=== PATIENT | male | born 1985 | race Caucasian/White ===

== ENCOUNTER 2019-07-10 16:35 | Inpatient (IN) | payer OTHER ==
[~2019-07-10] VITALS: Ht 167.6 cm; Wt 65.5 kg
[2019-07-10] MEDS ORDERED: RIFAMPIN 300 MG CAPSULE PO ONE (19:45)
[2019-07-10] MEDS ORDERED: ISONIAZID 300 MG TABLET PO ONE (19:45)
[2019-07-10] MEDS ORDERED: ETHAMBUTOL HCL 400 MG TABLET PO ONE (19:45)
[2019-07-10] MEDS ORDERED: PYRAZINAMIDE 500 MG TABLET PO ONE (19:45)
[2019-07-10 20:02] LABS: BASOPHILS % (AUTO) 1.3 % (0.0-2.0); EOSINOPHILS % (AUTO) 7.5 % (1.0-6.0); HEMATOCRIT 38.8 % (41-53); HEMOGLOBIN 12.6 g/dL (13.5-17.5); LYMPHOCYTES # (AUTO) 1.1 K/uL (1.0-4.8); LYMPHOCYTES % (AUTO) 14.4 % (22.0-44.0); MEAN CORPUSCULAR HEMOGLOBIN 26.4 pg (26.0-34.0); MEAN CORPUSCULAR HGB CONC 32.5 G/dL (31.0-37.0); MEAN CORPUSCULAR VOLUME 82 fL (80-100); MONOCYTES # (AUTO) 0.9 K/uL (0.1-1.0); NEUTROPHILS % (AUTO) 64.8 % (40.0-70.0); PLATELET COUNT (AUTO) 372 K/uL (150-450); RED BLOOD CELL COUNT(AUTO) 4.77 MIL/uL (4.50-5.90); RED CELL DISTRIBUTION WIDTH 15.5 % (11.5-14.5)
[2019-07-10] MEDS ORDERED: 0.9% SODIUM CHLORIDE 10 ML SYRINGE IVP PRN (20:15)
[2019-07-10] MEDS ORDERED: ONDANSETRON HCL 4 MG/2 ML VIAL IVP PRN (20:15)
[2019-07-10] MEDS ORDERED: ACETAMINOPHEN 325 MG TABLET PO PRN (20:15)
[2019-07-10 20:47] LABS: ANION GAP 10 mmol/L (8-16); CARBON DIOXIDE 27 mmol/L (22-29); CHLORIDE 101 mmol/L (98-107); CREATININE 0.58 mg/dL (0.60-1.30); GLOMERULAR FILTR. RATE CALC > 60 mL/min (>60); GLUCOSE,RANDOM 71 mg/dL (70-110); POTASSIUM 3.9 mmol/L (3.5-5.1); SODIUM SERUM 138 mmol/L (136-145); UREA NITROGEN, BLOOD 11 mg/dL (7-18)
[2019-07-10 20:51] LABS: ALANINE AMINOTRANSFERASE 29 U/L (12-78); ALBUMIN 3.3 g/dL (3.4-5.0); ALKALINE PHOSPHATASE 67 U/L (46-116); ASPARTATE AMINOTRANSFERASE 20 U/L (15-37); BILIRUBIN,TOTAL 0.4 mg/dL (0.1-1.0); TOTAL PROTEIN, SERUM 8.2 g/dL (6.4-8.2)
[2019-07-10] MEDS ORDERED: CloNIDine HCL 0.1 MG TABLET PO PRN (21:00)
[2019-07-10] MEDS ORDERED: GuaiFENesin/D-METHORPHAN [SUGAR-FREE] 200-20MG/10 ML SYRUP UDCUP PO PRN (21:00)
[2019-07-10] MEDS ORDERED: LOPERAMIDE HCL 2 MG CAPSULE PO PRN (21:00)
[2019-07-10] MEDS ORDERED: MAGNESIUM HYDROXIDE SUSPENSION 30 ML UDCUP PO PRN (21:00)
[2019-07-10] MEDS ORDERED: MAG HYDROX/AL HYDROX/SIMETH ES 30 ML SUSPENSION UDCUP PO PRN (21:00)
[2019-07-10] MEDS ORDERED: NICOTINE 14 MG/24 HOUR PATCH TD PRN (21:00)
[2019-07-10] MEDS ORDERED: ONDANSETRON HCL 4 MG TABLET PO PRN (21:00)
[2019-07-10] MEDS ORDERED: PETROLATUM,WHITE 28 GM JELLY TP PRN (21:00)
[2019-07-10] MEDS ORDERED: ALBUTEROL SULFATE HFA 90 MCG/PUFF 8 GM INHALER IH PRN (21:00)
[2019-07-10 21:20] VITALS: BP 97/60
[2019-07-11 05:56] VITALS: BP 93/57
[2019-07-11 08:06] VITALS: BP 101/57
[2019-07-11 11:44] VITALS: BP 98/58
[2019-07-11 15:22] VITALS: BP 97/56
[2019-07-11 19:36] VITALS: BP 97/58
[2019-07-12] VITALS (7 sets, daily range): BP systolic 96–110; BP diastolic 51–85
[2019-07-12 14:01] LABS: HIV 1-2 SCREEN 4TH GEN W/RFLX Non Reactive (Non Reactive)
[2019-07-12] MEDS: ETHAMBUTOL HCL 400 MG TABLET PO SCH (16:46)
[2019-07-12] MEDS: RIFAMPIN 300 MG CAPSULE PO SCH (16:46)
[2019-07-12] MEDS: PYRAZINAMIDE 500 MG TABLET PO SCH (16:46)
[2019-07-12] MEDS: PYRIDOXINE HCL 50 MG TABLET PO SCH (16:46)
[2019-07-12] MEDS: ISONIAZID 300 MG TABLET PO SCH (16:47)
[2019-07-13 05:12] VITALS: BP 97/55
[2019-07-13 07:38] VITALS: BP 100/61
[2019-07-13] MEDS: ETHAMBUTOL HCL 400 MG TABLET PO SCH (08:23)
[2019-07-13] MEDS: PYRIDOXINE HCL 50 MG TABLET PO SCH (08:23)
[2019-07-13] MEDS: RIFAMPIN 300 MG CAPSULE PO SCH (08:23)
[2019-07-13] MEDS: ISONIAZID 300 MG TABLET PO SCH (08:23)
[2019-07-13] MEDS: PYRAZINAMIDE 500 MG TABLET PO SCH (08:23)
[2019-07-13 11:30] VITALS: BP 103/60
[2019-07-13 15:48] VITALS: BP 110/60
[2019-07-13] MEDS: ACETAMINOPHEN 325 MG TABLET PO PRN (18:18)
[2019-07-13 20:39] VITALS: BP 104/59
[2019-07-14 00:10] VITALS: BP 104/55
[2019-07-14 04:30] VITALS: BP 99/54
[2019-07-14 07:50] VITALS: BP 125/68
[2019-07-14] MEDS: ETHAMBUTOL HCL 400 MG TABLET PO SCH (08:13)
[2019-07-14] MEDS: ISONIAZID 300 MG TABLET PO SCH (08:13)
[2019-07-14] MEDS: PYRAZINAMIDE 500 MG TABLET PO SCH (08:13)
[2019-07-14] MEDS: PYRIDOXINE HCL 50 MG TABLET PO SCH (08:14)
[2019-07-14] MEDS: RIFAMPIN 300 MG CAPSULE PO SCH (08:14)
[2019-07-14] MEDS: ACETAMINOPHEN 325 MG TABLET PO PRN (13:59)
[2019-07-14] MEDS: LORazepam 1 MG TABLET PO PRN (17:59)
[2019-07-14 20:19] VITALS: BP 101/61
[2019-07-15 04:18] VITALS: BP 99/67
[2019-07-15 07:23] VITALS: BP 88/61
[2019-07-15] MEDS: RIFAMPIN 300 MG CAPSULE PO SCH (08:59)
[2019-07-15] MEDS: PYRIDOXINE HCL 50 MG TABLET PO SCH (08:59)
[2019-07-15] MEDS: ISONIAZID 300 MG TABLET PO SCH (08:59)
[2019-07-15] MEDS: ETHAMBUTOL HCL 400 MG TABLET PO SCH (08:59)
[2019-07-15] MEDS: PYRAZINAMIDE 500 MG TABLET PO SCH (08:59)
[2019-07-15] MEDS: LORazepam 1 MG TABLET PO PRN ×2 (10:44→17:56)
[2019-07-15 15:34] VITALS: BP 94/51
[2019-07-15 20:20] VITALS: BP 111/52
[2019-07-15 23:31] VITALS: BP 103/56
[2019-07-16 05:00] VITALS: BP 105/64
[2019-07-16] MEDS: ETHAMBUTOL HCL 400 MG TABLET PO SCH (08:32)
[2019-07-16] MEDS: PYRAZINAMIDE 500 MG TABLET PO SCH (08:32)
[2019-07-16] MEDS: PYRIDOXINE HCL 50 MG TABLET PO SCH (08:32)
[2019-07-16] MEDS: RIFAMPIN 300 MG CAPSULE PO SCH (08:32)
[2019-07-16] MEDS: ISONIAZID 300 MG TABLET PO SCH (08:33)
[2019-07-16] MEDS: LORazepam 1 MG TABLET PO PRN ×2 (08:33→15:13)
[2019-07-16 15:38] VITALS: BP 111/63
[2019-07-16 17:33] LABS: QUANTIFERON+, Nil Value 0.03 IU/mL; QUANTIFERON+,Mitogen Value 3.97 IU/mL; QUANTIFERON+,TB1 Antigen Value 1.56 IU/mL; QUANTIFERON, TB GOLD PLUS Positive (Negative)
[2019-07-16 19:43] VITALS: BP 109/58
[2019-07-16 23:45] VITALS: BP 101/68
[2019-07-17] MEDS: LORazepam 1 MG TABLET PO PRN ×3 (00:54→19:26)
[2019-07-17 04:00] VITALS: BP 108/64
[2019-07-17 08:13] VITALS: BP 90/55
[2019-07-17] MEDS: ETHAMBUTOL HCL 400 MG TABLET PO SCH (09:14)
[2019-07-17] MEDS: ISONIAZID 300 MG TABLET PO SCH (09:14)
[2019-07-17] MEDS: RIFAMPIN 300 MG CAPSULE PO SCH (09:14)
[2019-07-17] MEDS: PYRIDOXINE HCL 50 MG TABLET PO SCH (09:15)
[2019-07-17] MEDS: SERTRALINE HCL 50 MG TABLET PO SCH (09:15)
[2019-07-17] MEDS: PYRAZINAMIDE 500 MG TABLET PO SCH (09:15)
[2019-07-17 11:36] VITALS: BP 102/69
[2019-07-17 15:30] VITALS: BP 105/58
[2019-07-17 20:09] VITALS: BP 101/56
[2019-07-17 23:36] VITALS: BP 98/57
[2019-07-18 04:25] VITALS: BP 113/53
[2019-07-18 07:23] VITALS: BP 94/59
[2019-07-18] MEDS: RIFAMPIN 300 MG CAPSULE PO SCH (08:55)
[2019-07-18] MEDS: PYRIDOXINE HCL 50 MG TABLET PO SCH (08:56)
[2019-07-18] MEDS: PYRAZINAMIDE 500 MG TABLET PO SCH (08:56)
[2019-07-18] MEDS: ETHAMBUTOL HCL 400 MG TABLET PO SCH (08:56)
[2019-07-18] MEDS: SERTRALINE HCL 50 MG TABLET PO SCH (08:56)
[2019-07-18] MEDS: ISONIAZID 300 MG TABLET PO SCH (08:56)
[2019-07-18] MEDS: LORazepam 1 MG TABLET PO PRN ×2 (08:56→15:55)
[2019-07-18 11:25] VITALS: BP 97/51
[2019-07-18 15:23] VITALS: BP 95/58
[2019-07-18 20:00] VITALS: BP 110/62
[2019-07-18 23:41] VITALS: BP 117/87
[2019-07-19] MEDS: LORazepam 1 MG TABLET PO PRN ×4 (00:03→21:42)
[2019-07-19 04:00] VITALS: BP 106/63
[2019-07-19] MEDS: RIFAMPIN 300 MG CAPSULE PO SCH (07:17)
[2019-07-19] MEDS: ISONIAZID 300 MG TABLET PO SCH (07:17)
[2019-07-19] MEDS: PYRAZINAMIDE 500 MG TABLET PO SCH (07:18)
[2019-07-19] MEDS: PYRIDOXINE HCL 50 MG TABLET PO SCH (07:18)
[2019-07-19] MEDS: ETHAMBUTOL HCL 400 MG TABLET PO SCH (07:18)
[2019-07-19 07:24] LABS: EOSINOPHILS % (AUTO) 8.9 % (1.0-6.0); HEMOGLOBIN 13.2 g/dL (13.5-17.5); LYMPHOCYTES % (AUTO) 17.1 % (22.0-44.0); MEAN CORPUSCULAR HEMOGLOBIN 27.2 pg (26.0-34.0); MEAN CORPUSCULAR HGB CONC 32.9 G/dL (31.0-37.0); MEAN CORPUSCULAR VOLUME 83 fL (80-100); MONOCYTES % (AUTO) 7.7 % (2.0-9.0); PLATELET COUNT (AUTO) 314 K/uL (150-450); RED BLOOD CELL COUNT(AUTO) 4.85 MIL/uL (4.50-5.90); RED CELL DISTRIBUTION WIDTH 15.6 % (11.5-14.5)
[2019-07-19 07:25] LABS: BASOPHILS % (AUTO) 2.3 % (0.0-2.0); LYMPHOCYTES # (AUTO) 1.1 K/uL (1.0-4.8); MONOCYTES # (AUTO) 0.5 K/uL (0.1-1.0); NEUTROPHILS # (AUTO) 4.2 K/uL (1.8-7.7)
[2019-07-19 07:55] LABS: ALANINE AMINOTRANSFERASE 28 U/L (12-78); ALBUMIN 3.4 g/dL (3.4-5.0); ALKALINE PHOSPHATASE 58 U/L (46-116); ANION GAP 5 mmol/L (8-16); ASPARTATE AMINOTRANSFERASE 18 U/L (15-37); BILIRUBIN,TOTAL 0.2 mg/dL (0.1-1.0); CALCIUM, TOTAL 9.1 mg/dL (8.8-10.5); CARBON DIOXIDE 32 mmol/L (22-29); CHLORIDE 99 mmol/L (98-107); CREATININE 0.74 mg/dL (0.60-1.30); GLOMERULAR FILTR. RATE CALC > 60 mL/min (>60); GLUCOSE,RANDOM 87 mg/dL (70-110); POTASSIUM 4.1 mmol/L (3.5-5.1); SODIUM SERUM 136 mmol/L (136-145); UREA NITROGEN, BLOOD 12 mg/dL (7-18)
[2019-07-19 08:00] VITALS: BP 109/82
[2019-07-19] MEDS: SERTRALINE HCL 50 MG TABLET PO SCH (11:35)
[2019-07-19 15:31] VITALS: BP 114/67
[2019-07-19 21:47] VITALS: BP 108/60
[2019-07-20 06:35] VITALS: BP 131/57
[2019-07-20 07:25] VITALS: BP 96/60
[2019-07-20] MEDS: LORazepam 1 MG TABLET PO PRN ×3 (07:48→20:33)
[2019-07-20] MEDS: SERTRALINE HCL 50 MG TABLET PO SCH (07:48)
[2019-07-20] MEDS: DOCUSATE SODIUM 100 MG CAPSULE PO PRN (07:48)
[2019-07-20] MEDS: RIFAMPIN 300 MG CAPSULE PO SCH (07:48)
[2019-07-20] MEDS: PYRIDOXINE HCL 50 MG TABLET PO SCH (07:48)
[2019-07-20] MEDS: PYRAZINAMIDE 500 MG TABLET PO SCH (07:48)
[2019-07-20] MEDS: ETHAMBUTOL HCL 400 MG TABLET PO SCH (07:49)
[2019-07-20] MEDS: ISONIAZID 300 MG TABLET PO SCH (07:49)
[2019-07-20 11:14] VITALS: BP 111/71
[2019-07-20 15:09] VITALS: BP 96/68
[2019-07-20 20:08] VITALS: BP 105/57
[2019-07-20] MEDS: TEMAZEPAM 7.5 MG CAPSULE PO PRN (23:54)
[2019-07-21 05:05] VITALS: BP 95/57
[2019-07-21 07:25] VITALS: BP 98/57
[2019-07-21] MEDS: SERTRALINE HCL 50 MG TABLET PO SCH (08:46)
[2019-07-21] MEDS: RIFAMPIN 300 MG CAPSULE PO SCH (08:46)
[2019-07-21] MEDS: ETHAMBUTOL HCL 400 MG TABLET PO SCH (08:47)
[2019-07-21] MEDS: ISONIAZID 300 MG TABLET PO SCH (08:47)
[2019-07-21] MEDS: PYRAZINAMIDE 500 MG TABLET PO SCH (08:47)
[2019-07-21] MEDS: PYRIDOXINE HCL 50 MG TABLET PO SCH (08:47)
[2019-07-21] MEDS: LORazepam 1 MG TABLET PO PRN ×2 (10:31→16:05)
[2019-07-21 16:06] VITALS: BP 101/58
[2019-07-21] MEDS: TEMAZEPAM 7.5 MG CAPSULE PO PRN (19:35)
[2019-07-21 20:54] VITALS: BP 107/56
[2019-07-22] MEDS: LORazepam 1 MG TABLET PO PRN ×2 (01:16→08:14)
[2019-07-22] MEDS: ETHAMBUTOL HCL 400 MG TABLET PO SCH (08:14)
[2019-07-22] MEDS: PYRAZINAMIDE 500 MG TABLET PO SCH (08:14)
[2019-07-22] MEDS: SERTRALINE HCL 50 MG TABLET PO SCH (08:14)
[2019-07-22] MEDS: RIFAMPIN 300 MG CAPSULE PO SCH (08:14)
[2019-07-22] MEDS: PYRIDOXINE HCL 50 MG TABLET PO SCH (08:14)
[2019-07-22] MEDS: ISONIAZID 300 MG TABLET PO SCH (08:14)
[2019-07-22 08:16] VITALS: BP 109/60
[2019-07-22 11:42] VITALS: BP 106/67
[2019-07-22 15:32] VITALS: BP 110/57
[2019-07-22 19:42] VITALS: BP 99/57
[2019-07-22] MEDS: TEMAZEPAM 7.5 MG CAPSULE PO PRN (20:08)
[2019-07-23 05:48] VITALS: BP 103/72
[2019-07-23 07:51] VITALS: BP 109/71
[2019-07-23] MEDS: SERTRALINE HCL 50 MG TABLET PO SCH (08:54)
[2019-07-23] MEDS: PYRIDOXINE HCL 50 MG TABLET PO SCH (08:54)
[2019-07-23] MEDS: RIFAMPIN 300 MG CAPSULE PO SCH (08:54)
[2019-07-23] MEDS: PYRAZINAMIDE 500 MG TABLET PO SCH (08:54)
[2019-07-23] MEDS: LORazepam 1 MG TABLET PO PRN ×2 (08:54→21:34)
[2019-07-23] MEDS: ETHAMBUTOL HCL 400 MG TABLET PO SCH (08:54)
[2019-07-23] MEDS: ISONIAZID 300 MG TABLET PO SCH (08:54)
[2019-07-23 11:54] VITALS: BP 106/57
[2019-07-23 16:17] VITALS: BP 119/49
[2019-07-23 19:37] VITALS: BP 107/56
[2019-07-23] MEDS: DOCUSATE SODIUM 100 MG CAPSULE PO PRN (21:34)
[2019-07-23] MEDS: TEMAZEPAM 7.5 MG CAPSULE PO PRN (21:34)
[2019-07-24] VITALS (7 sets, daily range): BP systolic 89–129; BP diastolic 43–88
[2019-07-24 06:43] LABS: BASOPHILS % (AUTO) 1.8 % (0.0-2.0); EOSINOPHILS % (AUTO) 10.9 % (1.0-6.0); HEMATOCRIT 37.6 % (41-53); HEMOGLOBIN 12.4 g/dL (13.5-17.5); LYMPHOCYTES # (AUTO) 1.1 K/uL (1.0-4.8); MEAN CORPUSCULAR HEMOGLOBIN 27.1 pg (26.0-34.0); MEAN CORPUSCULAR HGB CONC 32.8 G/dL (31.0-37.0); MEAN CORPUSCULAR VOLUME 83 fL (80-100); MONOCYTES # (AUTO) 0.6 K/uL (0.1-1.0); MONOCYTES % (AUTO) 9.6 % (2.0-9.0); NEUTROPHILS # (AUTO) 3.7 K/uL (1.8-7.7); NEUTROPHILS % (AUTO) 59.7 % (40.0-70.0); PLATELET COUNT (AUTO) 292 K/uL (150-450); RED BLOOD CELL COUNT(AUTO) 4.56 MIL/uL (4.50-5.90); RED CELL DISTRIBUTION WIDTH 16.1 % (11.5-14.5)
[2019-07-24 07:13] LABS: ALANINE AMINOTRANSFERASE 28 U/L (12-78); ALBUMIN 3.2 g/dL (3.4-5.0); ALKALINE PHOSPHATASE 50 U/L (46-116); ANION GAP 6 mmol/L (8-16); ASPARTATE AMINOTRANSFERASE 18 U/L (15-37); BILIRUBIN,TOTAL 0.2 mg/dL (0.1-1.0); CALCIUM, TOTAL 8.2 mg/dL (8.8-10.5); CARBON DIOXIDE 29 mmol/L (22-29); CHLORIDE 105 mmol/L (98-107); CREATININE 0.84 mg/dL (0.60-1.30); GLOMERULAR FILTR. RATE CALC > 60 mL/min (>60); GLUCOSE,RANDOM 84 mg/dL (70-110); POTASSIUM 4.3 mmol/L (3.5-5.1); SODIUM SERUM 140 mmol/L (136-145); TOTAL PROTEIN, SERUM 7.5 g/dL (6.4-8.2); UREA NITROGEN, BLOOD 14 mg/dL (7-18)
[2019-07-24] MEDS: DOCUSATE SODIUM 100 MG CAPSULE PO PRN (08:13)
[2019-07-24] MEDS: ETHAMBUTOL HCL 400 MG TABLET PO SCH (08:14)
[2019-07-24] MEDS: PYRAZINAMIDE 500 MG TABLET PO SCH (08:14)
[2019-07-24] MEDS: RIFAMPIN 300 MG CAPSULE PO SCH (08:14)
[2019-07-24] MEDS: ISONIAZID 300 MG TABLET PO SCH (08:14)
[2019-07-24] MEDS: PYRIDOXINE HCL 50 MG TABLET PO SCH (08:14)
[2019-07-24] MEDS: SERTRALINE HCL 50 MG TABLET PO SCH (08:16)
[2019-07-24] MEDS: TEMAZEPAM 7.5 MG CAPSULE PO PRN (20:53)
[2019-07-24] MEDS: LORazepam 1 MG TABLET PO PRN (23:59)
[2019-07-25 04:37] VITALS: BP 103/68
[2019-07-25 07:09] LABS: BASOPHILS % (AUTO) 1.6 % (0.0-2.0); EOSINOPHILS % (AUTO) 10.3 % (1.0-6.0); HEMATOCRIT 40.6 % (41-53); HEMOGLOBIN 13.1 g/dL (13.5-17.5); LYMPHOCYTES # (AUTO) 1.1 K/uL (1.0-4.8); LYMPHOCYTES % (AUTO) 15.8 % (22.0-44.0); MEAN CORPUSCULAR HEMOGLOBIN 26.7 pg (26.0-34.0); MEAN CORPUSCULAR HGB CONC 32.3 G/dL (31.0-37.0); MEAN CORPUSCULAR VOLUME 83 fL (80-100); MONOCYTES # (AUTO) 0.6 K/uL (0.1-1.0); NEUTROPHILS # (AUTO) 4.3 K/uL (1.8-7.7); NEUTROPHILS % (AUTO) 63.3 % (40.0-70.0); PLATELET COUNT (AUTO) 287 K/uL (150-450); RED BLOOD CELL COUNT(AUTO) 4.91 MIL/uL (4.50-5.90); RED CELL DISTRIBUTION WIDTH 15.9 % (11.5-14.5)
[2019-07-25 07:23] VITALS: BP 97/52
[2019-07-25 07:28] LABS: ALANINE AMINOTRANSFERASE 25 U/L (12-78); ALBUMIN 3.4 g/dL (3.4-5.0); ALKALINE PHOSPHATASE 52 U/L (46-116); ANION GAP 2 mmol/L (8-16); ASPARTATE AMINOTRANSFERASE 18 U/L (15-37); BILIRUBIN,TOTAL 0.1 mg/dL (0.1-1.0); CALCIUM, TOTAL 8.9 mg/dL (8.8-10.5); CARBON DIOXIDE 32 mmol/L (22-29); CHLORIDE 102 mmol/L (98-107); CREATININE 0.82 mg/dL (0.60-1.30); GLOMERULAR FILTR. RATE CALC > 60 mL/min (>60); GLUCOSE,RANDOM 89 mg/dL (70-110); POTASSIUM 4.3 mmol/L (3.5-5.1); SODIUM SERUM 136 mmol/L (136-145); TOTAL PROTEIN, SERUM 7.8 g/dL (6.4-8.2); UREA NITROGEN, BLOOD 10 mg/dL (7-18)
[2019-07-25] MEDS: SERTRALINE HCL 50 MG TABLET PO SCH (08:28)
[2019-07-25] MEDS: DOCUSATE SODIUM 100 MG CAPSULE PO PRN (08:28)
[2019-07-25] MEDS: PYRIDOXINE HCL 50 MG TABLET PO SCH (08:29)
[2019-07-25] MEDS: PYRAZINAMIDE 500 MG TABLET PO SCH (08:29)
[2019-07-25] MEDS: ISONIAZID 300 MG TABLET PO SCH (08:30)
[2019-07-25] MEDS: ETHAMBUTOL HCL 400 MG TABLET PO SCH (08:30)
[2019-07-25] MEDS: RIFAMPIN 300 MG CAPSULE PO SCH (08:30)
[2019-07-25 15:56] VITALS: BP 112/55
[2019-07-25 19:35] VITALS: BP 109/60
[2019-07-25] MEDS: LORazepam 1 MG TABLET PO PRN (21:36)
[2019-07-26 05:45] VITALS: BP 100/59
[2019-07-26 06:52] LABS: BASOPHILS % (AUTO) 1.6 % (0.0-2.0); EOSINOPHILS % (AUTO) 10.4 % (1.0-6.0); HEMATOCRIT 41.1 % (41-53); HEMOGLOBIN 13.2 g/dL (13.5-17.5); LYMPHOCYTES # (AUTO) 1.3 K/uL (1.0-4.8); LYMPHOCYTES % (AUTO) 19.4 % (22.0-44.0); MEAN CORPUSCULAR HEMOGLOBIN 26.3 pg (26.0-34.0); MEAN CORPUSCULAR VOLUME 82 fL (80-100); MONOCYTES # (AUTO) 0.7 K/uL (0.1-1.0); MONOCYTES % (AUTO) 10.7 % (2.0-9.0); NEUTROPHILS # (AUTO) 3.9 K/uL (1.8-7.7); NEUTROPHILS % (AUTO) 57.9 % (40.0-70.0); PLATELET COUNT (AUTO) 276 K/uL (150-450); RED CELL DISTRIBUTION WIDTH 16.2 % (11.5-14.5)
[2019-07-26 07:12] LABS: ALANINE AMINOTRANSFERASE 28 U/L (12-78); ALBUMIN 3.4 g/dL (3.4-5.0); ALKALINE PHOSPHATASE 52 U/L (46-116); ANION GAP 4 mmol/L (8-16); ASPARTATE AMINOTRANSFERASE 19 U/L (15-37); BILIRUBIN,TOTAL 0.2 mg/dL (0.1-1.0); CALCIUM, TOTAL 8.9 mg/dL (8.8-10.5); CARBON DIOXIDE 30 mmol/L (22-29); CHLORIDE 102 mmol/L (98-107); GLOMERULAR FILTR. RATE CALC > 60 mL/min (>60); GLUCOSE,RANDOM 86 mg/dL (70-110); POTASSIUM 4.4 mmol/L (3.5-5.1); SODIUM SERUM 136 mmol/L (136-145); TOTAL PROTEIN, SERUM 7.8 g/dL (6.4-8.2); UREA NITROGEN, BLOOD 13 mg/dL (7-18)
[2019-07-26] MEDS: PYRAZINAMIDE 500 MG TABLET PO SCH (08:40)
[2019-07-26] MEDS: PYRIDOXINE HCL 50 MG TABLET PO SCH (08:40)
[2019-07-26] MEDS: DOCUSATE SODIUM 100 MG CAPSULE PO PRN (08:40)
[2019-07-26] MEDS: RIFAMPIN 300 MG CAPSULE PO SCH (08:41)
[2019-07-26] MEDS: ETHAMBUTOL HCL 400 MG TABLET PO SCH (08:41)
[2019-07-26] MEDS: ISONIAZID 300 MG TABLET PO SCH (08:41)
[2019-07-26] MEDS: SERTRALINE HCL 50 MG TABLET PO SCH (08:44)
[2019-07-26 08:49] VITALS: BP 132/61
[2019-07-26 11:28] VITALS: BP 101/65
[2019-07-26 16:30] VITALS: BP 99/64
[2019-07-26 20:24] VITALS: BP 100/71
[2019-07-26] MEDS: LORazepam 1 MG TABLET PO PRN (21:03)
[2019-07-27 04:00] VITALS: BP 109/77
[2019-07-27 07:45] VITALS: BP 107/74
[2019-07-27] MEDS: RIFAMPIN 300 MG CAPSULE PO SCH (09:07)
[2019-07-27] MEDS: PYRAZINAMIDE 500 MG TABLET PO SCH (09:07)
[2019-07-27] MEDS: PYRIDOXINE HCL 50 MG TABLET PO SCH (09:07)
[2019-07-27] MEDS: ETHAMBUTOL HCL 400 MG TABLET PO SCH (09:07)
[2019-07-27] MEDS: SERTRALINE HCL 50 MG TABLET PO SCH (09:08)
[2019-07-27] MEDS: ISONIAZID 300 MG TABLET PO SCH (09:08)
[2019-07-27] MEDS: DOCUSATE SODIUM 100 MG CAPSULE PO PRN (09:08)
[2019-07-27 11:30] VITALS: BP 102/62
[2019-07-27 15:00] VITALS: BP 104/58
[2019-07-27 15:09] LABS: BASOPHILS % (AUTO) 1.5 % (0.0-2.0); EOSINOPHILS % (AUTO) 8.7 % (1.0-6.0); HEMATOCRIT 42.7 % (41-53); LYMPHOCYTES # (AUTO) 1.3 K/uL (1.0-4.8); LYMPHOCYTES % (AUTO) 17.2 % (22.0-44.0); MEAN CORPUSCULAR HEMOGLOBIN 27.3 pg (26.0-34.0); MEAN CORPUSCULAR HGB CONC 32.9 G/dL (31.0-37.0); MEAN CORPUSCULAR VOLUME 83 fL (80-100); MONOCYTES # (AUTO) 0.8 K/uL (0.1-1.0); MONOCYTES % (AUTO) 10.2 % (2.0-9.0); NEUTROPHILS # (AUTO) 4.7 K/uL (1.8-7.7); NEUTROPHILS % (AUTO) 62.4 % (40.0-70.0); PLATELET COUNT (AUTO) 294 K/uL (150-450); RED BLOOD CELL COUNT(AUTO) 5.15 MIL/uL (4.50-5.90); RED CELL DISTRIBUTION WIDTH 16.2 % (11.5-14.5)
[2019-07-27 15:32] LABS: ALANINE AMINOTRANSFERASE 31 U/L (12-78); ALBUMIN 3.6 g/dL (3.4-5.0); ALKALINE PHOSPHATASE 59 U/L (46-116); ANION GAP 3 mmol/L (8-16); ASPARTATE AMINOTRANSFERASE 21 U/L (15-37); BILIRUBIN,TOTAL 0.3 mg/dL (0.1-1.0); CALCIUM, TOTAL 8.5 mg/dL (8.8-10.5); CARBON DIOXIDE 31 mmol/L (22-29); CHLORIDE 104 mmol/L (98-107); GLOMERULAR FILTR. RATE CALC > 60 mL/min (>60); GLUCOSE,RANDOM 87 mg/dL (70-110); POTASSIUM 4.7 mmol/L (3.5-5.1); SODIUM SERUM 138 mmol/L (136-145); TOTAL PROTEIN, SERUM 8.3 g/dL (6.4-8.2); UREA NITROGEN, BLOOD 14 mg/dL (7-18)
[2019-07-27] MEDS: LORazepam 1 MG TABLET PO PRN (15:43)
[2019-07-27 20:14] VITALS: BP 106/64
[2019-07-28 04:50] VITALS: BP 102/73
[2019-07-28 05:42] LABS: BASOPHILS % (AUTO) 1.2 % (0.0-2.0); EOSINOPHILS % (AUTO) 9.4 % (1.0-6.0); HEMATOCRIT 43.4 % (41-53); LYMPHOCYTES # (AUTO) 1.2 K/uL (1.0-4.8); LYMPHOCYTES % (AUTO) 17.3 % (22.0-44.0); MEAN CORPUSCULAR HEMOGLOBIN 26.8 pg (26.0-34.0); MEAN CORPUSCULAR HGB CONC 32.2 G/dL (31.0-37.0); MEAN CORPUSCULAR VOLUME 83 fL (80-100); MONOCYTES # (AUTO) 0.6 K/uL (0.1-1.0); MONOCYTES % (AUTO) 8.6 % (2.0-9.0); NEUTROPHILS # (AUTO) 4.4 K/uL (1.8-7.7); NEUTROPHILS % (AUTO) 63.5 % (40.0-70.0); PLATELET COUNT (AUTO) 291 K/uL (150-450); RED BLOOD CELL COUNT(AUTO) 5.21 MIL/uL (4.50-5.90); RED CELL DISTRIBUTION WIDTH 16.3 % (11.5-14.5)
[2019-07-28 05:58] LABS: ALANINE AMINOTRANSFERASE 29 U/L (12-78); ALBUMIN 3.6 g/dL (3.4-5.0); ALKALINE PHOSPHATASE 54 U/L (46-116); ANION GAP 3 mmol/L (8-16); ASPARTATE AMINOTRANSFERASE 17 U/L (15-37); BILIRUBIN,TOTAL 0.2 mg/dL (0.1-1.0); CARBON DIOXIDE 31 mmol/L (22-29); CHLORIDE 102 mmol/L (98-107); CREATININE 0.94 mg/dL (0.60-1.30); GLOMERULAR FILTR. RATE CALC > 60 mL/min (>60); GLUCOSE,RANDOM 87 mg/dL (70-110); POTASSIUM 4.3 mmol/L (3.5-5.1); SODIUM SERUM 136 mmol/L (136-145); TOTAL PROTEIN, SERUM 8.3 g/dL (6.4-8.2); UREA NITROGEN, BLOOD 12 mg/dL (7-18)
[2019-07-28 07:48] VITALS: BP 101/69
[2019-07-28] MEDS: PYRAZINAMIDE 500 MG TABLET PO SCH (11:14)
[2019-07-28] MEDS: RIFAMPIN 300 MG CAPSULE PO SCH (11:15)
[2019-07-28] MEDS: SERTRALINE HCL 50 MG TABLET PO SCH (11:15)
[2019-07-28] MEDS: ETHAMBUTOL HCL 400 MG TABLET PO SCH (11:15)
[2019-07-28] MEDS: ISONIAZID 300 MG TABLET PO SCH (11:15)
[2019-07-28] MEDS: PYRIDOXINE HCL 50 MG TABLET PO SCH (11:15)
[2019-07-28] MEDS: LORazepam 1 MG TABLET PO PRN (13:35)
[2019-07-28 15:25] VITALS: BP 104/62
[2019-07-28 19:57] VITALS: BP 110/67
[2019-07-28] MEDS: TEMAZEPAM 7.5 MG CAPSULE PO PRN (21:01)
[2019-07-28 23:47] VITALS: BP 99/53
[2019-07-29] MEDS: LORazepam 1 MG TABLET PO PRN (02:48)
[2019-07-29 04:00] VITALS: BP 114/61
[2019-07-29 06:29] LABS: EOSINOPHILS % (AUTO) 12.6 % (1.0-6.0); HEMATOCRIT 40.6 % (41-53); HEMOGLOBIN 13.3 g/dL (13.5-17.5); LYMPHOCYTES # (AUTO) 1.1 K/uL (1.0-4.8); LYMPHOCYTES % (AUTO) 18.3 % (22.0-44.0); MEAN CORPUSCULAR HEMOGLOBIN 26.9 pg (26.0-34.0); MEAN CORPUSCULAR HGB CONC 32.6 G/dL (31.0-37.0); MEAN CORPUSCULAR VOLUME 83 fL (80-100); MONOCYTES # (AUTO) 0.6 K/uL (0.1-1.0); MONOCYTES % (AUTO) 10.5 % (2.0-9.0); NEUTROPHILS # (AUTO) 3.5 K/uL (1.8-7.7); NEUTROPHILS % (AUTO) 56.6 % (40.0-70.0); PLATELET COUNT (AUTO) 272 K/uL (150-450); RED BLOOD CELL COUNT(AUTO) 4.92 MIL/uL (4.50-5.90); RED CELL DISTRIBUTION WIDTH 16.1 % (11.5-14.5)
[2019-07-29 06:52] LABS: ANION GAP 5 mmol/L (8-16); CARBON DIOXIDE 31 mmol/L (22-29); CHLORIDE 103 mmol/L (98-107); CREATININE 0.85 mg/dL (0.60-1.30); GLUCOSE,RANDOM 87 mg/dL (70-110); POTASSIUM 4.4 mmol/L (3.5-5.1); SODIUM SERUM 139 mmol/L (136-145); UREA NITROGEN, BLOOD 11 mg/dL (7-18)
[2019-07-29 06:53] LABS: ALANINE AMINOTRANSFERASE 25 U/L (12-78); ALBUMIN 3.3 g/dL (3.4-5.0); ALKALINE PHOSPHATASE 48 U/L (46-116); ASPARTATE AMINOTRANSFERASE 16 U/L (15-37); BILIRUBIN,TOTAL 0.1 mg/dL (0.1-1.0); CALCIUM, TOTAL 8.5 mg/dL (8.8-10.5); GLOMERULAR FILTR. RATE CALC > 60 mL/min (>60); TOTAL PROTEIN, SERUM 7.6 g/dL (6.4-8.2)
[2019-07-29 07:42] VITALS: BP 95/63
[2019-07-29] MEDS: PYRIDOXINE HCL 50 MG TABLET PO SCH (08:19)
[2019-07-29] MEDS: SERTRALINE HCL 50 MG TABLET PO SCH (08:19)
[2019-07-29] MEDS: ISONIAZID 300 MG TABLET PO SCH (08:19)
[2019-07-29] MEDS: ETHAMBUTOL HCL 400 MG TABLET PO SCH (08:19)
[2019-07-29] MEDS: RIFAMPIN 300 MG CAPSULE PO SCH (08:19)
[2019-07-29] MEDS: PYRAZINAMIDE 500 MG TABLET PO SCH (08:19)
[2019-07-29 15:56] VITALS: BP 122/50
[2019-07-29 19:25] VITALS: BP 99/63
[2019-07-29] MEDS: TEMAZEPAM 7.5 MG CAPSULE PO PRN (20:30)
[2019-07-29 23:25] VITALS: BP 104/67
[2019-07-30 05:32] VITALS: BP 106/68
[2019-07-30 05:51] LABS: BASOPHILS % (AUTO) 1.3 % (0.0-2.0); EOSINOPHILS % (AUTO) 10.6 % (1.0-6.0); HEMATOCRIT 40.4 % (41-53); HEMOGLOBIN 12.9 g/dL (13.5-17.5); LYMPHOCYTES # (AUTO) 1.1 K/uL (1.0-4.8); LYMPHOCYTES % (AUTO) 17.8 % (22.0-44.0); MEAN CORPUSCULAR HEMOGLOBIN 26.5 pg (26.0-34.0); MEAN CORPUSCULAR HGB CONC 32.1 G/dL (31.0-37.0); MEAN CORPUSCULAR VOLUME 83 fL (80-100); MONOCYTES # (AUTO) 0.7 K/uL (0.1-1.0); NEUTROPHILS # (AUTO) 3.7 K/uL (1.8-7.7); NEUTROPHILS % (AUTO) 59.3 % (40.0-70.0); PLATELET COUNT (AUTO) 264 K/uL (150-450); RED BLOOD CELL COUNT(AUTO) 4.88 MIL/uL (4.50-5.90); RED CELL DISTRIBUTION WIDTH 16.2 % (11.5-14.5)
[2019-07-30 06:07] LABS: ALANINE AMINOTRANSFERASE 26 U/L (12-78); ALBUMIN 3.2 g/dL (3.4-5.0); ALKALINE PHOSPHATASE 46 U/L (46-116); ANION GAP 3 mmol/L (8-16); ASPARTATE AMINOTRANSFERASE 16 U/L (15-37); BILIRUBIN,TOTAL 0.1 mg/dL (0.1-1.0); CALCIUM, TOTAL 8.4 mg/dL (8.8-10.5); CARBON DIOXIDE 31 mmol/L (22-29); CHLORIDE 105 mmol/L (98-107); CREATININE 0.86 mg/dL (0.60-1.30); GLOMERULAR FILTR. RATE CALC > 60 mL/min (>60); GLUCOSE,RANDOM 84 mg/dL (70-110); POTASSIUM 4.6 mmol/L (3.5-5.1); SODIUM SERUM 139 mmol/L (136-145); TOTAL PROTEIN, SERUM 7.4 g/dL (6.4-8.2); UREA NITROGEN, BLOOD 10 mg/dL (7-18)
[2019-07-30 07:58] VITALS: BP 93/59
[2019-07-30] MEDS: PYRIDOXINE HCL 50 MG TABLET PO SCH (08:41)
[2019-07-30] MEDS: ISONIAZID 300 MG TABLET PO SCH (08:42)
[2019-07-30] MEDS: RIFAMPIN 300 MG CAPSULE PO SCH (08:42)
[2019-07-30] MEDS: SERTRALINE HCL 50 MG TABLET PO SCH (08:42)
[2019-07-30] MEDS: PYRAZINAMIDE 500 MG TABLET PO SCH (08:42)
[2019-07-30] MEDS: ETHAMBUTOL HCL 400 MG TABLET PO SCH (08:42)
[2019-07-30] MEDS: ACETAMINOPHEN 325 MG TABLET PO PRN (11:36)
[2019-07-30 11:49] VITALS: BP 111/65
[2019-07-30 16:03] VITALS: BP 99/57
[2019-07-30 19:55] VITALS: BP 92/50
[2019-07-30] MEDS: TEMAZEPAM 7.5 MG CAPSULE PO PRN (21:02)
[2019-07-30] MEDS: LORazepam 1 MG TABLET PO PRN (23:54)
[2019-07-31 06:07] VITALS: BP 106/56
[2019-07-31 08:04] LABS: ALANINE AMINOTRANSFERASE 32 U/L (12-78); ALBUMIN 3.5 g/dL (3.4-5.0); ALKALINE PHOSPHATASE 49 U/L (46-116); ANION GAP 5 mmol/L (8-16); ASPARTATE AMINOTRANSFERASE 20 U/L (15-37); BILIRUBIN,TOTAL 0.2 mg/dL (0.1-1.0); CALCIUM, TOTAL 8.7 mg/dL (8.8-10.5); CARBON DIOXIDE 32 mmol/L (22-29); CHLORIDE 106 mmol/L (98-107); CREATININE 0.87 mg/dL (0.60-1.30); GLOMERULAR FILTR. RATE CALC > 60 mL/min (>60); GLUCOSE,RANDOM 83 mg/dL (70-110); POTASSIUM 4.5 mmol/L (3.5-5.1); SODIUM SERUM 143 mmol/L (136-145); UREA NITROGEN, BLOOD 12 mg/dL (7-18)
[2019-07-31] MEDS: PYRAZINAMIDE 500 MG TABLET PO SCH (08:33)
[2019-07-31] MEDS: SERTRALINE HCL 50 MG TABLET PO SCH (08:33)
[2019-07-31] MEDS: RIFAMPIN 300 MG CAPSULE PO SCH (08:33)
[2019-07-31] MEDS: DOCUSATE SODIUM 100 MG CAPSULE PO PRN (08:33)
[2019-07-31] MEDS: PYRIDOXINE HCL 50 MG TABLET PO SCH (08:33)
[2019-07-31] MEDS: ETHAMBUTOL HCL 400 MG TABLET PO SCH (08:33)
[2019-07-31] MEDS: ISONIAZID 300 MG TABLET PO SCH (08:33)
[2019-07-31 08:34] VITALS: BP 101/56
[2019-07-31 11:22] VITALS: BP 107/70
[2019-07-31 15:23] VITALS: BP 95/56
[2019-07-31] MEDS: LORazepam 1 MG TABLET PO PRN (19:35)
[2019-07-31 20:21] VITALS: BP 122/60
[2019-07-31] MEDS: TEMAZEPAM 7.5 MG CAPSULE PO PRN (20:59)
[2019-08-01 05:19] VITALS: BP 104/53
[2019-08-01 07:49] VITALS: BP 103/54
[2019-08-01] MEDS: DOCUSATE SODIUM 100 MG CAPSULE PO PRN (08:21)
[2019-08-01] MEDS: SERTRALINE HCL 50 MG TABLET PO SCH (08:21)
[2019-08-01] MEDS: PYRIDOXINE HCL 50 MG TABLET PO SCH (08:22)
[2019-08-01] MEDS: ISONIAZID 300 MG TABLET PO SCH (08:22)
[2019-08-01] MEDS: ETHAMBUTOL HCL 400 MG TABLET PO SCH (08:22)
[2019-08-01] MEDS: PYRAZINAMIDE 500 MG TABLET PO SCH (08:22)
[2019-08-01] MEDS: RIFAMPIN 300 MG CAPSULE PO SCH (08:22)
[2019-08-01] MEDS: LORazepam 1 MG TABLET PO PRN ×2 (12:51→20:55)
[2019-08-01 15:16] VITALS: BP 118/74
[2019-08-01] MEDS: TEMAZEPAM 7.5 MG CAPSULE PO PRN (20:55)
[2019-08-01 21:22] VITALS: BP 114/64
[2019-08-02] MEDS: ETHAMBUTOL HCL 400 MG TABLET PO SCH (08:24)
[2019-08-02] MEDS: SERTRALINE HCL 50 MG TABLET PO SCH (08:24)
[2019-08-02] MEDS: DOCUSATE SODIUM 100 MG CAPSULE PO PRN (08:24)
[2019-08-02] MEDS: PYRAZINAMIDE 500 MG TABLET PO SCH (08:24)
[2019-08-02] MEDS: ISONIAZID 300 MG TABLET PO SCH (08:25)
[2019-08-02] MEDS: RIFAMPIN 300 MG CAPSULE PO SCH (08:25)
[2019-08-02] MEDS: PYRIDOXINE HCL 50 MG TABLET PO SCH (08:25)
[2019-08-02 08:33] VITALS: BP 94/59
[2019-08-02 18:01] VITALS: BP 94/58
[2019-08-02 21:18] VITALS: BP 112/64
[2019-08-03 06:23] LABS: EOSINOPHILS % (AUTO) 10.9 % (1.0-6.0); HEMOGLOBIN 13.5 g/dL (13.5-17.5); LYMPHOCYTES # (AUTO) 1.2 K/uL (1.0-4.8); LYMPHOCYTES % (AUTO) 20.2 % (22.0-44.0); MEAN CORPUSCULAR HEMOGLOBIN 27.1 pg (26.0-34.0); MEAN CORPUSCULAR HGB CONC 32.9 G/dL (31.0-37.0); MEAN CORPUSCULAR VOLUME 82 fL (80-100); MONOCYTES # (AUTO) 0.6 K/uL (0.1-1.0); MONOCYTES % (AUTO) 10.4 % (2.0-9.0); NEUTROPHILS # (AUTO) 3.2 K/uL (1.8-7.7); NEUTROPHILS % (AUTO) 55.5 % (40.0-70.0); PLATELET COUNT (AUTO) 236 K/uL (150-450); RED BLOOD CELL COUNT(AUTO) 4.98 MIL/uL (4.50-5.90); RED CELL DISTRIBUTION WIDTH 16.3 % (11.5-14.5)
[2019-08-03 06:28] LABS: ANION GAP 5 mmol/L (8-16); CALCIUM, TOTAL 8.7 mg/dL (8.8-10.5); CARBON DIOXIDE 30 mmol/L (22-29); CHLORIDE 101 mmol/L (98-107); CREATININE 0.98 mg/dL (0.60-1.30); GLOMERULAR FILTR. RATE CALC > 60 mL/min (>60); GLUCOSE,RANDOM 89 mg/dL (70-110); SODIUM SERUM 136 mmol/L (136-145); UREA NITROGEN, BLOOD 11 mg/dL (7-18)
[2019-08-03] MEDS: RIFAMPIN 300 MG CAPSULE PO SCH (07:55)
[2019-08-03] MEDS: ETHAMBUTOL HCL 400 MG TABLET PO SCH (07:55)
[2019-08-03] MEDS: SERTRALINE HCL 50 MG TABLET PO SCH (07:56)
[2019-08-03] MEDS: PYRAZINAMIDE 500 MG TABLET PO SCH (07:56)
[2019-08-03] MEDS: PYRIDOXINE HCL 50 MG TABLET PO SCH (07:56)
[2019-08-03] MEDS: ISONIAZID 300 MG TABLET PO SCH (07:57)
[2019-08-03 09:26] VITALS: BP 100/49
[2019-08-03 11:35] VITALS: BP 147/81
[2019-08-03 15:38] VITALS: BP 109/58
[2019-08-03 20:07] VITALS: BP 110/73
[2019-08-03] MEDS: TEMAZEPAM 7.5 MG CAPSULE PO PRN (20:58)
[2019-08-04] MEDS: LORazepam 1 MG TABLET PO PRN ×2 (00:13→21:31)
[2019-08-04 05:06] VITALS: BP 124/58
[2019-08-04 06:42] LABS: BASOPHILS % (AUTO) 1.7 % (0.0-2.0); EOSINOPHILS % (AUTO) 11.4 % (1.0-6.0); HEMOGLOBIN 13.6 g/dL (13.5-17.5); LYMPHOCYTES # (AUTO) 1.2 K/uL (1.0-4.8); LYMPHOCYTES % (AUTO) 20.3 % (22.0-44.0); MEAN CORPUSCULAR HEMOGLOBIN 26.9 pg (26.0-34.0); MEAN CORPUSCULAR HGB CONC 32.4 G/dL (31.0-37.0); MEAN CORPUSCULAR VOLUME 83 fL (80-100); MONOCYTES # (AUTO) 0.6 K/uL (0.1-1.0); NEUTROPHILS # (AUTO) 3.4 K/uL (1.8-7.7); NEUTROPHILS % (AUTO) 56.6 % (40.0-70.0); PLATELET COUNT (AUTO) 236 K/uL (150-450); RED BLOOD CELL COUNT(AUTO) 5.05 MIL/uL (4.50-5.90); RED CELL DISTRIBUTION WIDTH 16.3 % (11.5-14.5)
[2019-08-04 06:54] LABS: ANION GAP 3 mmol/L (8-16); CALCIUM, TOTAL 8.8 mg/dL (8.8-10.5); CARBON DIOXIDE 32 mmol/L (22-29); CHLORIDE 101 mmol/L (98-107); CREATININE 0.98 mg/dL (0.60-1.30); GLOMERULAR FILTR. RATE CALC > 60 mL/min (>60); GLUCOSE,RANDOM 87 mg/dL (70-110); POTASSIUM 4.6 mmol/L (3.5-5.1); SODIUM SERUM 136 mmol/L (136-145); UREA NITROGEN, BLOOD 11 mg/dL (7-18)
[2019-08-04 08:07] VITALS: BP 103/60
[2019-08-04] MEDS: RIFAMPIN 300 MG CAPSULE PO SCH (09:19)
[2019-08-04] MEDS: ETHAMBUTOL HCL 400 MG TABLET PO SCH (09:19)
[2019-08-04] MEDS: SERTRALINE HCL 50 MG TABLET PO SCH (09:19)
[2019-08-04] MEDS: PYRIDOXINE HCL 50 MG TABLET PO SCH (09:19)
[2019-08-04] MEDS: PYRAZINAMIDE 500 MG TABLET PO SCH (09:19)
[2019-08-04] MEDS: ISONIAZID 300 MG TABLET PO SCH (09:19)
[2019-08-04 15:32] VITALS: BP 108/58
[2019-08-04] MEDS: TEMAZEPAM 7.5 MG CAPSULE PO PRN (21:31)
[2019-08-04 21:36] VITALS: BP 120/57
[2019-08-05 04:58] VITALS: BP 123/60
[2019-08-05 07:07] VITALS: BP 101/58
[2019-08-05] MEDS: RIFAMPIN 300 MG CAPSULE PO SCH (08:34)
[2019-08-05] MEDS: PYRAZINAMIDE 500 MG TABLET PO SCH (08:34)
[2019-08-05] MEDS: ETHAMBUTOL HCL 400 MG TABLET PO SCH (08:34)
[2019-08-05] MEDS: PYRIDOXINE HCL 50 MG TABLET PO SCH (08:34)
[2019-08-05] MEDS: ISONIAZID 300 MG TABLET PO SCH (08:34)
[2019-08-05] MEDS: SERTRALINE HCL 50 MG TABLET PO SCH (08:34)
[2019-08-05 11:19] VITALS: BP 90/41
[2019-08-05 15:42] VITALS: BP 102/66
[2019-08-05 20:19] VITALS: BP 108/59
[2019-08-05] MEDS: TEMAZEPAM 7.5 MG CAPSULE PO PRN (21:12)
[2019-08-05] MEDS: LORazepam 1 MG TABLET PO PRN (21:12)
[2019-08-06 00:08] VITALS: BP 97/68
[2019-08-06 05:43] VITALS: BP 116/57
[2019-08-06 08:16] VITALS: BP 107/65
[2019-08-06] MEDS: ETHAMBUTOL HCL 400 MG TABLET PO SCH (10:37)
[2019-08-06] MEDS: SERTRALINE HCL 50 MG TABLET PO SCH (10:37)
[2019-08-06] MEDS: PYRAZINAMIDE 500 MG TABLET PO SCH (10:37)
[2019-08-06] MEDS: RIFAMPIN 300 MG CAPSULE PO SCH (10:37)
[2019-08-06] MEDS: PYRIDOXINE HCL 50 MG TABLET PO SCH (10:37)
[2019-08-06] MEDS: ISONIAZID 300 MG TABLET PO SCH (10:37)
[2019-08-06 11:27] VITALS: BP 102/53
[2019-08-06 17:45] VITALS: BP 100/62
[2019-08-06] MEDS: LORazepam 1 MG TABLET PO PRN (21:07)
[2019-08-06] MEDS: TEMAZEPAM 7.5 MG CAPSULE PO PRN (21:07)
[2019-08-06 21:13] VITALS: BP 98/58
[2019-08-07 05:29] VITALS: BP 112/63
[2019-08-07 08:46] LABS: ALANINE AMINOTRANSFERASE 34 U/L (12-78); ALBUMIN 3.4 g/dL (3.4-5.0); ALKALINE PHOSPHATASE 48 U/L (46-116); ANION GAP 1 mmol/L (8-16); ASPARTATE AMINOTRANSFERASE 23 U/L (15-37); CALCIUM, TOTAL 8.9 mg/dL (8.8-10.5); CARBON DIOXIDE 33 mmol/L (22-29); CHLORIDE 101 mmol/L (98-107); CREATININE 0.94 mg/dL (0.60-1.30); GLOMERULAR FILTR. RATE CALC > 60 mL/min (>60); GLUCOSE,RANDOM 84 mg/dL (70-110); POTASSIUM 4.6 mmol/L (3.5-5.1); SODIUM SERUM 135 mmol/L (136-145); TOTAL PROTEIN, SERUM 7.7 g/dL (6.4-8.2); UREA NITROGEN, BLOOD 12 mg/dL (7-18)
[2019-08-07 09:08] LABS: BILIRUBIN,TOTAL 0.1 mg/dL (0.1-1.0)
[2019-08-07] MEDS: ETHAMBUTOL HCL 400 MG TABLET PO SCH (09:40)
[2019-08-07] MEDS: RIFAMPIN 300 MG CAPSULE PO SCH (09:41)
[2019-08-07] MEDS: PYRIDOXINE HCL 50 MG TABLET PO SCH (09:41)
[2019-08-07] MEDS: SERTRALINE HCL 50 MG TABLET PO SCH (09:41)
[2019-08-07] MEDS: PYRAZINAMIDE 500 MG TABLET PO SCH (09:41)
[2019-08-07] MEDS: ISONIAZID 300 MG TABLET PO SCH (09:41)
[2019-08-07] MEDS: DOCUSATE SODIUM 100 MG CAPSULE PO PRN (09:41)
[2019-08-07] MEDS: LORazepam 1 MG TABLET PO PRN (14:11)
[2019-08-07 20:00] VITALS: BP 99/56
[2019-08-07] MEDS: TEMAZEPAM 7.5 MG CAPSULE PO PRN (20:40)
[2019-08-08] MEDS: LORazepam 1 MG TABLET PO PRN ×3 (02:50→21:16)
[2019-08-08 02:56] VITALS: BP 101/59
[2019-08-08 07:19] VITALS: BP 92/53
[2019-08-08] MEDS: ETHAMBUTOL HCL 400 MG TABLET PO SCH (07:33)
[2019-08-08] MEDS: PYRIDOXINE HCL 50 MG TABLET PO SCH (07:33)
[2019-08-08] MEDS: ISONIAZID 300 MG TABLET PO SCH (07:33)
[2019-08-08] MEDS: SERTRALINE HCL 50 MG TABLET PO SCH (07:33)
[2019-08-08] MEDS: RIFAMPIN 300 MG CAPSULE PO SCH (07:33)
[2019-08-08] MEDS: PYRAZINAMIDE 500 MG TABLET PO SCH (07:33)
[2019-08-08 11:22] VITALS: BP 112/73
[2019-08-08 15:50] VITALS: BP 99/66
[2019-08-08 20:45] VITALS: BP 109/53
[2019-08-08] MEDS: TEMAZEPAM 7.5 MG CAPSULE PO PRN (21:16)
[2019-08-09] MEDS ORDERED: SODIUM CHLORIDE 3% 15 ML NEB SOLUTION NEB ONE ×2 (03:29→21:57)
[2019-08-09 06:07] VITALS: BP 97/52
[2019-08-09 08:00] VITALS: BP 101/60
[2019-08-09] MEDS: RIFAMPIN 300 MG CAPSULE PO SCH (08:04)
[2019-08-09] MEDS: PYRAZINAMIDE 500 MG TABLET PO SCH (08:04)
[2019-08-09] MEDS: SERTRALINE HCL 50 MG TABLET PO SCH (08:04)
[2019-08-09] MEDS: ISONIAZID 300 MG TABLET PO SCH (08:04)
[2019-08-09] MEDS: PYRIDOXINE HCL 50 MG TABLET PO SCH (08:04)
[2019-08-09] MEDS: ETHAMBUTOL HCL 400 MG TABLET PO SCH (08:04)
[2019-08-09] MEDS: LORazepam 1 MG TABLET PO PRN ×2 (08:06→15:55)
[2019-08-09 14:40] VITALS: BP 104/62
[2019-08-09 19:13] VITALS: BP 99/57
[2019-08-09] MEDS: TEMAZEPAM 7.5 MG CAPSULE PO PRN (20:43)
[2019-08-10] MEDS: LORazepam 1 MG TABLET PO PRN ×3 (00:11→16:44)
[2019-08-10 05:38] VITALS: BP 102/61
[2019-08-10] MEDS: PYRIDOXINE HCL 50 MG TABLET PO SCH (07:47)
[2019-08-10] MEDS: ISONIAZID 300 MG TABLET PO SCH (07:47)
[2019-08-10] MEDS: RIFAMPIN 300 MG CAPSULE PO SCH (07:47)
[2019-08-10] MEDS: PYRAZINAMIDE 500 MG TABLET PO SCH (07:47)
[2019-08-10] MEDS: SERTRALINE HCL 50 MG TABLET PO SCH (07:48)
[2019-08-10] MEDS: ETHAMBUTOL HCL 400 MG TABLET PO SCH (07:48)
[2019-08-10 08:18] VITALS: BP 105/63
[2019-08-10 15:00] VITALS: BP 102/56
[2019-08-10 15:31] VITALS: BP 104/56
[2019-08-10 21:00] VITALS: BP 105/74
[2019-08-10] MEDS: TEMAZEPAM 7.5 MG CAPSULE PO PRN (21:19)
[2019-08-11 05:50] VITALS: BP 101/54
[2019-08-11 07:53] VITALS: BP 104/72
[2019-08-11] MEDS: ISONIAZID 300 MG TABLET PO SCH (09:07)
[2019-08-11] MEDS: PYRIDOXINE HCL 50 MG TABLET PO SCH (09:07)
[2019-08-11] MEDS: SERTRALINE HCL 50 MG TABLET PO SCH (09:08)
[2019-08-11] MEDS: LORazepam 1 MG TABLET PO PRN ×2 (09:08→17:04)
[2019-08-11] MEDS: RIFAMPIN 300 MG CAPSULE PO SCH (09:08)
[2019-08-11] MEDS: ETHAMBUTOL HCL 400 MG TABLET PO SCH (09:08)
[2019-08-11] MEDS: PYRAZINAMIDE 500 MG TABLET PO SCH (09:08)
[2019-08-11] MEDS: ACETAMINOPHEN 325 MG TABLET PO PRN ×2 (09:15→21:34)
[2019-08-11 12:11] VITALS: BP 96/76
[2019-08-11 15:45] VITALS: BP 104/84
[2019-08-11 21:30] VITALS: BP 102/66
[2019-08-11] MEDS: DiphenhydrAMINE HCL 25 MG CAPSULE PO PRN (21:34)
[2019-08-12] MEDS: LORazepam 1 MG TABLET PO PRN ×3 (00:32→17:47)
[2019-08-12 00:35] VITALS: BP 96/64
[2019-08-12 08:20] VITALS: BP 96/54
[2019-08-12] MEDS: ISONIAZID 300 MG TABLET PO SCH (09:13)
[2019-08-12] MEDS: DOCUSATE SODIUM 100 MG CAPSULE PO PRN (09:13)
[2019-08-12] MEDS: ETHAMBUTOL HCL 400 MG TABLET PO SCH (09:13)
[2019-08-12] MEDS: SERTRALINE HCL 50 MG TABLET PO SCH (09:13)
[2019-08-12] MEDS: PYRAZINAMIDE 500 MG TABLET PO SCH (09:15)
[2019-08-12] MEDS: RIFAMPIN 300 MG CAPSULE PO SCH (09:16)
[2019-08-12] MEDS: PYRIDOXINE HCL 50 MG TABLET PO SCH (09:16)
[2019-08-12 15:36] VITALS: BP 91/47
[2019-08-12 20:17] VITALS: BP 101/69
[2019-08-12] MEDS: DiphenhydrAMINE HCL 25 MG CAPSULE PO PRN (21:35)
[2019-08-13] MEDS: LORazepam 1 MG TABLET PO PRN ×3 (05:21→22:06)
[2019-08-13 05:25] VITALS: BP 100/62
[2019-08-13 06:08] LABS: BASOPHILS % (AUTO) 2.6 % (0.0-2.0); EOSINOPHILS % (AUTO) 9.7 % (1.0-6.0); HEMATOCRIT 42.7 % (41-53); HEMOGLOBIN 13.8 g/dL (13.5-17.5); LYMPHOCYTES # (AUTO) 1.2 K/uL (1.0-4.8); LYMPHOCYTES % (AUTO) 20.4 % (22.0-44.0); MEAN CORPUSCULAR HEMOGLOBIN 26.9 pg (26.0-34.0); MEAN CORPUSCULAR HGB CONC 32.3 G/dL (31.0-37.0); MEAN CORPUSCULAR VOLUME 83 fL (80-100); MONOCYTES # (AUTO) 0.6 K/uL (0.1-1.0); NEUTROPHILS # (AUTO) 3.5 K/uL (1.8-7.7); NEUTROPHILS % (AUTO) 57.3 % (40.0-70.0); PLATELET COUNT (AUTO) 218 K/uL (150-450); RED BLOOD CELL COUNT(AUTO) 5.14 MIL/uL (4.50-5.90); RED CELL DISTRIBUTION WIDTH 16.8 % (11.5-14.5)
[2019-08-13 06:19] LABS: ANION GAP 6 mmol/L (8-16); CALCIUM, TOTAL 8.6 mg/dL (8.8-10.5); CARBON DIOXIDE 30 mmol/L (22-29); CHLORIDE 107 mmol/L (98-107); CREATININE 0.98 mg/dL (0.60-1.30); GLOMERULAR FILTR. RATE CALC > 60 mL/min (>60); GLUCOSE,RANDOM 86 mg/dL (70-110); POTASSIUM 4.5 mmol/L (3.5-5.1); SODIUM SERUM 143 mmol/L (136-145); UREA NITROGEN, BLOOD 11 mg/dL (7-18)
[2019-08-13 07:58] VITALS: BP 90/62
[2019-08-13] MEDS: PYRIDOXINE HCL 50 MG TABLET PO SCH ×2 (08:24→12:07)
[2019-08-13] MEDS: ETHAMBUTOL HCL 400 MG TABLET PO SCH ×2 (08:24→12:07)
[2019-08-13] MEDS: ISONIAZID 300 MG TABLET PO SCH ×2 (08:24→12:07)
[2019-08-13] MEDS: SERTRALINE HCL 50 MG TABLET PO SCH ×2 (08:24→12:07)
[2019-08-13] MEDS: PYRAZINAMIDE 500 MG TABLET PO SCH ×2 (08:25→12:07)
[2019-08-13] MEDS: RIFAMPIN 300 MG CAPSULE PO SCH ×2 (08:25→12:07)
[2019-08-13 11:55] VITALS: BP 101/65
[2019-08-13] MEDS: ACETAMINOPHEN 325 MG TABLET PO PRN (12:06)
[2019-08-13 15:28] VITALS: BP 103/62
[2019-08-13] MEDS: DiphenhydrAMINE HCL 25 MG CAPSULE PO PRN (19:58)
[2019-08-13 20:03] VITALS: BP 102/65
[2019-08-14 05:42] VITALS: BP 128/52
[2019-08-14 08:00] VITALS: BP 124/56
[2019-08-14] MEDS: PYRAZINAMIDE 500 MG TABLET PO SCH (08:47)
[2019-08-14] MEDS: ETHAMBUTOL HCL 400 MG TABLET PO SCH (08:47)
[2019-08-14] MEDS: ISONIAZID 300 MG TABLET PO SCH (08:47)
[2019-08-14] MEDS: SERTRALINE HCL 50 MG TABLET PO SCH (08:47)
[2019-08-14] MEDS: PYRIDOXINE HCL 50 MG TABLET PO SCH (08:47)
[2019-08-14] MEDS: LORazepam 1 MG TABLET PO PRN ×2 (08:47→20:17)
[2019-08-14] MEDS: RIFAMPIN 300 MG CAPSULE PO SCH (08:47)
[2019-08-14 16:58] VITALS: BP 120/55
[2019-08-14 18:26] VITALS: BP 102/60
[2019-08-14] MEDS: DOCUSATE SODIUM 100 MG CAPSULE PO PRN (20:17)
[2019-08-14 21:01] VITALS: BP 122/59
[2019-08-14] MEDS: DiphenhydrAMINE HCL 25 MG CAPSULE PO PRN (22:35)
[2019-08-14 23:53] VITALS: BP 100/55
[2019-08-15 05:30] VITALS: BP 101/64
[2019-08-15 07:09] LABS: BASOPHILS % (AUTO) 1.5 % (0.0-2.0); EOSINOPHILS % (AUTO) 8.4 % (1.0-6.0); HEMATOCRIT 40.6 % (41-53); HEMOGLOBIN 13.5 g/dL (13.5-17.5); LYMPHOCYTES # (AUTO) 1.1 K/uL (1.0-4.8); LYMPHOCYTES % (AUTO) 18.1 % (22.0-44.0); MEAN CORPUSCULAR HEMOGLOBIN 27.5 pg (26.0-34.0); MEAN CORPUSCULAR HGB CONC 33.3 G/dL (31.0-37.0); MEAN CORPUSCULAR VOLUME 83 fL (80-100); MONOCYTES # (AUTO) 0.6 K/uL (0.1-1.0); MONOCYTES % (AUTO) 9.9 % (2.0-9.0); NEUTROPHILS # (AUTO) 3.9 K/uL (1.8-7.7); NEUTROPHILS % (AUTO) 62.1 % (40.0-70.0); PLATELET COUNT (AUTO) 206 K/uL (150-450); RED CELL DISTRIBUTION WIDTH 16.5 % (11.5-14.5)
[2019-08-15 07:26] LABS: ANION GAP 5 mmol/L (8-16); CALCIUM, TOTAL 8.9 mg/dL (8.8-10.5); CARBON DIOXIDE 31 mmol/L (22-29); CHLORIDE 106 mmol/L (98-107); CREATININE 0.93 mg/dL (0.60-1.30); GLOMERULAR FILTR. RATE CALC > 60 mL/min (>60); GLUCOSE,RANDOM 86 mg/dL (70-110); POTASSIUM 4.4 mmol/L (3.5-5.1); SODIUM SERUM 142 mmol/L (136-145); UREA NITROGEN, BLOOD 11 mg/dL (7-18)
[2019-08-15 07:53] VITALS: BP 107/58
[2019-08-15] MEDS: DOCUSATE SODIUM 100 MG CAPSULE PO PRN (08:24)
[2019-08-15] MEDS: SERTRALINE HCL 50 MG TABLET PO SCH (08:24)
[2019-08-15] MEDS: RIFAMPIN 300 MG CAPSULE PO SCH (08:25)
[2019-08-15] MEDS: ISONIAZID 300 MG TABLET PO SCH (08:25)
[2019-08-15] MEDS: PYRIDOXINE HCL 50 MG TABLET PO SCH (08:25)
[2019-08-15] MEDS: ETHAMBUTOL HCL 400 MG TABLET PO SCH (08:25)
[2019-08-15] MEDS: PYRAZINAMIDE 500 MG TABLET PO SCH (08:25)
[2019-08-15] MEDS: LORazepam 1 MG TABLET PO PRN (11:03)
[2019-08-15 12:05] VITALS: BP 110/70
[2019-08-15 20:12] VITALS: BP 100/73
[2019-08-16] MEDS: LORazepam 1 MG TABLET PO PRN ×3 (03:25→21:52)
[2019-08-16 08:11] LABS: BASOPHILS % (AUTO) 1.3 % (0.0-2.0); EOSINOPHILS % (AUTO) 7.9 % (1.0-6.0); HEMATOCRIT 40.7 % (41-53); HEMOGLOBIN 13.5 g/dL (13.5-17.5); LYMPHOCYTES # (AUTO) 1.1 K/uL (1.0-4.8); LYMPHOCYTES % (AUTO) 15.4 % (22.0-44.0); MEAN CORPUSCULAR HEMOGLOBIN 27.4 pg (26.0-34.0); MEAN CORPUSCULAR HGB CONC 33.2 G/dL (31.0-37.0); MEAN CORPUSCULAR VOLUME 83 fL (80-100); MONOCYTES # (AUTO) 0.7 K/uL (0.1-1.0); MONOCYTES % (AUTO) 9.6 % (2.0-9.0); NEUTROPHILS # (AUTO) 4.6 K/uL (1.8-7.7); NEUTROPHILS % (AUTO) 65.8 % (40.0-70.0); PLATELET COUNT (AUTO) 206 K/uL (150-450); RED BLOOD CELL COUNT(AUTO) 4.93 MIL/uL (4.50-5.90); RED CELL DISTRIBUTION WIDTH 16.9 % (11.5-14.5)
[2019-08-16] MEDS: ISONIAZID 300 MG TABLET PO SCH (08:21)
[2019-08-16] MEDS: PYRIDOXINE HCL 50 MG TABLET PO SCH (08:21)
[2019-08-16] MEDS: ETHAMBUTOL HCL 400 MG TABLET PO SCH (08:21)
[2019-08-16] MEDS: PYRAZINAMIDE 500 MG TABLET PO SCH (08:21)
[2019-08-16] MEDS: SERTRALINE HCL 50 MG TABLET PO SCH (08:21)
[2019-08-16] MEDS: DOCUSATE SODIUM 100 MG CAPSULE PO PRN (08:21)
[2019-08-16] MEDS: RIFAMPIN 300 MG CAPSULE PO SCH (08:21)
[2019-08-16 08:26] LABS: ANION GAP 4 mmol/L (8-16); CALCIUM, TOTAL 8.9 mg/dL (8.8-10.5); CARBON DIOXIDE 32 mmol/L (22-29); CHLORIDE 102 mmol/L (98-107); CREATININE 0.94 mg/dL (0.60-1.30); GLOMERULAR FILTR. RATE CALC > 60 mL/min (>60); GLUCOSE,RANDOM 91 mg/dL (70-110); POTASSIUM 4.3 mmol/L (3.5-5.1); SODIUM SERUM 138 mmol/L (136-145); UREA NITROGEN, BLOOD 11 mg/dL (7-18)
[2019-08-16 13:55] VITALS: BP 110/72
[2019-08-16] MEDS: IBUPROFEN 400 MG TABLET PO PRN (15:17)
[2019-08-16 20:30] VITALS: BP 102/75
[2019-08-17 04:00] VITALS: BP 18/97
[2019-08-17] MEDS: RIFAMPIN 300 MG CAPSULE PO SCH (08:37)
[2019-08-17] MEDS: ISONIAZID 300 MG TABLET PO SCH (08:37)
[2019-08-17] MEDS: ETHAMBUTOL HCL 400 MG TABLET PO SCH (08:37)
[2019-08-17] MEDS: PYRIDOXINE HCL 50 MG TABLET PO SCH (08:38)
[2019-08-17] MEDS: SERTRALINE HCL 50 MG TABLET PO SCH (08:38)
[2019-08-17] MEDS: PYRAZINAMIDE 500 MG TABLET PO SCH (08:38)
[2019-08-17 09:19] VITALS: BP 119/62
[2019-08-17 16:00] VITALS: BP 109/67
[2019-08-17 19:40] VITALS: BP 116/61
[2019-08-17] MEDS: DiphenhydrAMINE HCL 25 MG CAPSULE PO PRN (20:54)
[2019-08-17] MEDS: LORazepam 1 MG TABLET PO PRN (20:54)
[2019-08-17 21:00] VITALS: BP 106/67
[2019-08-18 05:49] VITALS: BP 107/55
[2019-08-18 07:26] LABS: BASOPHILS % (AUTO) 1.4 % (0.0-2.0); HEMATOCRIT 38.5 % (41-53); HEMOGLOBIN 12.6 g/dL (13.5-17.5); LYMPHOCYTES # (AUTO) 1.1 K/uL (1.0-4.8); LYMPHOCYTES % (AUTO) 17.4 % (22.0-44.0); MEAN CORPUSCULAR HEMOGLOBIN 27.1 pg (26.0-34.0); MEAN CORPUSCULAR HGB CONC 32.7 G/dL (31.0-37.0); MEAN CORPUSCULAR VOLUME 83 fL (80-100); MONOCYTES # (AUTO) 0.6 K/uL (0.1-1.0); MONOCYTES % (AUTO) 10.1 % (2.0-9.0); NEUTROPHILS # (AUTO) 3.9 K/uL (1.8-7.7); NEUTROPHILS % (AUTO) 64.1 % (40.0-70.0); PLATELET COUNT (AUTO) 228 K/uL (150-450); RED BLOOD CELL COUNT(AUTO) 4.64 MIL/uL (4.50-5.90)
[2019-08-18 07:39] LABS: ANION GAP 9 mmol/L (8-16); CALCIUM, TOTAL 8.6 mg/dL (8.8-10.5); CARBON DIOXIDE 27 mmol/L (22-29); CHLORIDE 104 mmol/L (98-107); CREATININE 0.91 mg/dL (0.60-1.30); GLOMERULAR FILTR. RATE CALC > 60 mL/min (>60); GLUCOSE,RANDOM 89 mg/dL (70-110); POTASSIUM 3.8 mmol/L (3.5-5.1); SODIUM SERUM 140 mmol/L (136-145); UREA NITROGEN, BLOOD 11 mg/dL (7-18)
[2019-08-18] MEDS: ISONIAZID 300 MG TABLET PO SCH (08:59)
[2019-08-18] MEDS: RIFAMPIN 300 MG CAPSULE PO SCH (08:59)
[2019-08-18] MEDS: ETHAMBUTOL HCL 400 MG TABLET PO SCH (08:59)
[2019-08-18] MEDS: SERTRALINE HCL 50 MG TABLET PO SCH (08:59)
[2019-08-18] MEDS: PYRAZINAMIDE 500 MG TABLET PO SCH (08:59)
[2019-08-18] MEDS: PYRIDOXINE HCL 50 MG TABLET PO SCH (09:02)
[2019-08-18 09:11] VITALS: BP 97/63
[2019-08-18 10:32] LABS: ALANINE AMINOTRANSFERASE 42 U/L (12-78); ALBUMIN 3.7 g/dL (3.4-5.0); ALKALINE PHOSPHATASE 47 U/L (46-116); ASPARTATE AMINOTRANSFERASE 21 U/L (15-37); BILIRUBIN,TOTAL 0.1 mg/dL (0.1-1.0); TOTAL PROTEIN, SERUM 7.6 g/dL (6.4-8.2)
[2019-08-18 16:36] VITALS: BP 114/63
[2019-08-18 19:47] VITALS: BP 117/65
[2019-08-18] MEDS: DiphenhydrAMINE HCL 25 MG CAPSULE PO PRN (20:56)
[2019-08-18] MEDS: LORazepam 1 MG TABLET PO PRN (20:56)
[2019-08-18 21:00] VITALS: BP 112/59
[2019-08-19 05:25] VITALS: BP 104/76
[2019-08-19 08:17] VITALS: BP 107/65
[2019-08-19] MEDS: PYRAZINAMIDE 500 MG TABLET PO SCH (08:40)
[2019-08-19] MEDS: PYRIDOXINE HCL 50 MG TABLET PO SCH (08:41)
[2019-08-19] MEDS: ETHAMBUTOL HCL 400 MG TABLET PO SCH (08:41)
[2019-08-19] MEDS: SERTRALINE HCL 50 MG TABLET PO SCH (08:41)
[2019-08-19] MEDS: LORazepam 1 MG TABLET PO PRN ×2 (08:41→22:12)
[2019-08-19] MEDS: RIFAMPIN 300 MG CAPSULE PO SCH (08:41)
[2019-08-19] MEDS: ISONIAZID 300 MG TABLET PO SCH (08:41)
[2019-08-19 15:46] VITALS: BP 126/51
[2019-08-19 19:29] VITALS: BP 109/64
[2019-08-19] MEDS: DiphenhydrAMINE HCL 25 MG CAPSULE PO PRN (22:12)
[2019-08-20] MEDS: IBUPROFEN 400 MG TABLET PO PRN ×3 (02:28→20:34)
[2019-08-20 04:34] VITALS: BP 102/72
[2019-08-20] MEDS: SERTRALINE HCL 50 MG TABLET PO SCH (08:52)
[2019-08-20] MEDS: PYRAZINAMIDE 500 MG TABLET PO SCH (08:52)
[2019-08-20] MEDS: RIFAMPIN 300 MG CAPSULE PO SCH (08:52)
[2019-08-20] MEDS: ETHAMBUTOL HCL 400 MG TABLET PO SCH (08:53)
[2019-08-20] MEDS: PYRIDOXINE HCL 50 MG TABLET PO SCH (08:53)
[2019-08-20] MEDS: ISONIAZID 300 MG TABLET PO SCH (08:53)
[2019-08-20 09:16] VITALS: BP 102/63
[2019-08-20] MEDS: DiphenhydrAMINE HCL 25 MG CAPSULE PO PRN (20:24)
[2019-08-20 20:47] VITALS: BP 112/88
[2019-08-21] VITALS: BP 128/70
[2019-08-21 06:00] VITALS: BP 112/59
[2019-08-21] MEDS: PYRIDOXINE HCL 50 MG TABLET PO SCH (08:03)
[2019-08-21 08:05] VITALS: BP 123/74
[2019-08-21] MEDS: RIFAMPIN 300 MG CAPSULE PO SCH (08:05)
[2019-08-21] MEDS: PYRAZINAMIDE 500 MG TABLET PO SCH (08:05)
[2019-08-21] MEDS: LORazepam 1 MG TABLET PO PRN (08:06)
[2019-08-21] MEDS: ETHAMBUTOL HCL 400 MG TABLET PO SCH (08:06)
[2019-08-21] MEDS: ISONIAZID 300 MG TABLET PO SCH (08:06)
[2019-08-21] MEDS: SERTRALINE HCL 50 MG TABLET PO SCH (08:06)
[2019-08-21] MEDS: IBUPROFEN 400 MG TABLET PO PRN ×2 (08:06→20:14)
[2019-08-21 15:44] VITALS: BP 133/71
[2019-08-21] MEDS ORDERED: SODIUM CHLORIDE 3% 15 ML NEB SOLUTION NEB ONE (16:55)
[2019-08-21] MEDS ORDERED: SODIUM CL IRRIG SOLN BOTTLE 250 ML IRRIG ONE (17:19)
[2019-08-21 19:45] VITALS: BP 110/69
[2019-08-21] MEDS: DiphenhydrAMINE HCL 25 MG CAPSULE PO PRN (20:15)
[2019-08-22 04:55] VITALS: BP 93/63
[2019-08-22] MEDS: PYRAZINAMIDE 500 MG TABLET PO SCH (09:02)
[2019-08-22] MEDS: ISONIAZID 300 MG TABLET PO SCH (09:02)
[2019-08-22] MEDS: RIFAMPIN 300 MG CAPSULE PO SCH (09:02)
[2019-08-22] MEDS: SERTRALINE HCL 50 MG TABLET PO SCH (09:02)
[2019-08-22] MEDS: ETHAMBUTOL HCL 400 MG TABLET PO SCH (09:02)
[2019-08-22] MEDS: PYRIDOXINE HCL 50 MG TABLET PO SCH (09:03)
[2019-08-22 09:09] VITALS: BP 115/74
[2019-08-22 16:47] VITALS: BP 104/67
[2019-08-22] MEDS: LORazepam 1 MG TABLET PO PRN (20:32)
[2019-08-22 21:04] VITALS: BP 112/73
[2019-08-23 05:47] VITALS: BP 99/57
[2019-08-23 08:10] VITALS: BP 104/57
[2019-08-23] MEDS: RIFAMPIN 300 MG CAPSULE PO SCH (08:33)
[2019-08-23] MEDS: SERTRALINE HCL 50 MG TABLET PO SCH (08:33)
[2019-08-23] MEDS: ISONIAZID 300 MG TABLET PO SCH (08:33)
[2019-08-23] MEDS: PYRAZINAMIDE 500 MG TABLET PO SCH (08:33)
[2019-08-23] MEDS: PYRIDOXINE HCL 50 MG TABLET PO SCH (08:33)
[2019-08-23] MEDS: ETHAMBUTOL HCL 400 MG TABLET PO SCH (08:33)
[2019-08-23 16:20] VITALS: BP 116/60
[2019-08-23 20:18] VITALS: BP 105/60
[2019-08-23] MEDS: DiphenhydrAMINE HCL 25 MG CAPSULE PO PRN (21:31)
[2019-08-23] MEDS: LORazepam 1 MG TABLET PO PRN (21:36)
[2019-08-24 05:48] VITALS: BP 102/56
[2019-08-24 08:00] VITALS: BP 110/75
[2019-08-24] MEDS: ISONIAZID 300 MG TABLET PO SCH (08:37)
[2019-08-24] MEDS: RIFAMPIN 300 MG CAPSULE PO SCH (08:37)
[2019-08-24] MEDS: ETHAMBUTOL HCL 400 MG TABLET PO SCH (08:37)
[2019-08-24] MEDS: SERTRALINE HCL 50 MG TABLET PO SCH (08:37)
[2019-08-24] MEDS: PYRIDOXINE HCL 50 MG TABLET PO SCH (08:37)
[2019-08-24] MEDS: PYRAZINAMIDE 500 MG TABLET PO SCH (08:37)
[2019-08-24 16:00] VITALS: BP 107/73
[2019-08-24 20:53] VITALS: BP 114/51
[2019-08-24] MEDS: DiphenhydrAMINE HCL 25 MG CAPSULE PO PRN (21:12)
[2019-08-24] MEDS: LORazepam 1 MG TABLET PO PRN (21:12)
[2019-08-25 06:10] VITALS: BP 95/72
[2019-08-25 07:40] LABS: BASOPHILS % (AUTO) 1.1 % (0.0-2.0); EOSINOPHILS % (AUTO) 9.5 % (1.0-6.0); HEMATOCRIT 39.7 % (41-53); HEMOGLOBIN 13.1 g/dL (13.5-17.5); LYMPHOCYTES % (AUTO) 15.6 % (22.0-44.0); MEAN CORPUSCULAR HEMOGLOBIN 27.2 pg (26.0-34.0); MEAN CORPUSCULAR HGB CONC 32.9 G/dL (31.0-37.0); MEAN CORPUSCULAR VOLUME 83 fL (80-100); MONOCYTES # (AUTO) 0.7 K/uL (0.1-1.0); MONOCYTES % (AUTO) 10.8 % (2.0-9.0); NEUTROPHILS # (AUTO) 3.9 K/uL (1.8-7.7); PLATELET COUNT (AUTO) 253 K/uL (150-450); RED BLOOD CELL COUNT(AUTO) 4.81 MIL/uL (4.50-5.90); RED CELL DISTRIBUTION WIDTH 17.1 % (11.5-14.5)
[2019-08-25 08:04] LABS: ALANINE AMINOTRANSFERASE 39 U/L (12-78); ALBUMIN 3.6 g/dL (3.4-5.0); ALKALINE PHOSPHATASE 53 U/L (46-116); ANION GAP 3 mmol/L (8-16); ASPARTATE AMINOTRANSFERASE 19 U/L (15-37); BILIRUBIN,TOTAL 0.1 mg/dL (0.1-1.0); CALCIUM, TOTAL 8.8 mg/dL (8.8-10.5); CARBON DIOXIDE 32 mmol/L (22-29); CHLORIDE 103 mmol/L (98-107); CREATININE 0.98 mg/dL (0.60-1.30); GLOMERULAR FILTR. RATE CALC > 60 mL/min (>60); GLUCOSE,RANDOM 90 mg/dL (70-110); SODIUM SERUM 138 mmol/L (136-145); TOTAL PROTEIN, SERUM 7.9 g/dL (6.4-8.2); UREA NITROGEN, BLOOD 11 mg/dL (7-18)
[2019-08-25 08:29] VITALS: BP 108/63
[2019-08-25] MEDS: PYRIDOXINE HCL 50 MG TABLET PO SCH (10:03)
[2019-08-25] MEDS: SERTRALINE HCL 50 MG TABLET PO SCH (10:03)
[2019-08-25] MEDS: PYRAZINAMIDE 500 MG TABLET PO SCH (10:03)
[2019-08-25] MEDS: ETHAMBUTOL HCL 400 MG TABLET PO SCH (10:04)
[2019-08-25] MEDS: RIFAMPIN 300 MG CAPSULE PO SCH (10:04)
[2019-08-25] MEDS: ISONIAZID 300 MG TABLET PO SCH (10:04)
[2019-08-25] MEDS: LORazepam 1 MG TABLET PO PRN ×2 (10:13→20:50)
[2019-08-25 15:52] VITALS: BP 103/68
[2019-08-25 20:31] VITALS: BP 115/74
[2019-08-25] MEDS: DiphenhydrAMINE HCL 25 MG CAPSULE PO PRN (20:50)
[2019-08-26 06:07] VITALS: BP 128/72
[2019-08-26 08:18] VITALS: BP 112/53
[2019-08-26] MEDS: ETHAMBUTOL HCL 400 MG TABLET PO SCH (09:20)
[2019-08-26] MEDS: PYRAZINAMIDE 500 MG TABLET PO SCH (09:21)
[2019-08-26] MEDS: RIFAMPIN 300 MG CAPSULE PO SCH (09:21)
[2019-08-26] MEDS: PYRIDOXINE HCL 50 MG TABLET PO SCH (09:22)
[2019-08-26] MEDS: SERTRALINE HCL 50 MG TABLET PO SCH (09:22)
[2019-08-26] MEDS: ISONIAZID 300 MG TABLET PO SCH (09:22)
[2019-08-26] MEDS: LORazepam 1 MG TABLET PO PRN ×2 (09:26→20:39)
[2019-08-26 15:51] VITALS: BP 105/63
[2019-08-26 19:59] VITALS: BP 111/74
[2019-08-26] MEDS: DiphenhydrAMINE HCL 25 MG CAPSULE PO PRN (20:40)
[2019-08-27 05:01] VITALS: BP 101/68
[2019-08-27 06:41] LABS: BASOPHILS % (AUTO) 1.2 % (0.0-2.0); EOSINOPHILS % (AUTO) 10.2 % (1.0-6.0); HEMATOCRIT 38.4 % (41-53); LYMPHOCYTES # (AUTO) 1.2 K/uL (1.0-4.8); LYMPHOCYTES % (AUTO) 19.6 % (22.0-44.0); MEAN CORPUSCULAR HEMOGLOBIN 28.1 pg (26.0-34.0); MEAN CORPUSCULAR HGB CONC 33.9 G/dL (31.0-37.0); MEAN CORPUSCULAR VOLUME 83 fL (80-100); MONOCYTES # (AUTO) 0.8 K/uL (0.1-1.0); MONOCYTES % (AUTO) 12.8 % (2.0-9.0); NEUTROPHILS # (AUTO) 3.4 K/uL (1.8-7.7); NEUTROPHILS % (AUTO) 56.2 % (40.0-70.0); PLATELET COUNT (AUTO) 257 K/uL (150-450); RED BLOOD CELL COUNT(AUTO) 4.63 MIL/uL (4.50-5.90); RED CELL DISTRIBUTION WIDTH 17.1 % (11.5-14.5)
[2019-08-27 07:08] LABS: ANION GAP 4 mmol/L (8-16); CALCIUM, TOTAL 8.7 mg/dL (8.8-10.5); CARBON DIOXIDE 30 mmol/L (22-29); CHLORIDE 105 mmol/L (98-107); CREATININE 0.95 mg/dL (0.60-1.30); GLOMERULAR FILTR. RATE CALC > 60 mL/min (>60); GLUCOSE,RANDOM 90 mg/dL (70-110); POTASSIUM 4.2 mmol/L (3.5-5.1); SODIUM SERUM 139 mmol/L (136-145); UREA NITROGEN, BLOOD 9 mg/dL (7-18)
[2019-08-27 08:12] VITALS: BP 92/66
[2019-08-27] MEDS: PYRIDOXINE HCL 50 MG TABLET PO SCH (08:45)
[2019-08-27] MEDS: ETHAMBUTOL HCL 400 MG TABLET PO SCH (08:45)
[2019-08-27] MEDS: ISONIAZID 300 MG TABLET PO SCH (08:45)
[2019-08-27] MEDS: RIFAMPIN 300 MG CAPSULE PO SCH (08:45)
[2019-08-27] MEDS: SERTRALINE HCL 50 MG TABLET PO SCH (08:45)
[2019-08-27] MEDS: PYRAZINAMIDE 500 MG TABLET PO SCH (08:45)
[2019-08-27] MEDS: LORazepam 1 MG TABLET PO PRN (14:12)
[2019-08-27 16:02] VITALS: BP 139/73
[2019-08-27 19:54] VITALS: BP 108/68
[2019-08-27] MEDS: DiphenhydrAMINE HCL 25 MG CAPSULE PO PRN (20:27)
[2019-08-28 05:50] VITALS: BP 103/80
[2019-08-28 07:40] LABS: BASOPHILS % (AUTO) 1.8 % (0.0-2.0); EOSINOPHILS % (AUTO) 9.6 % (1.0-6.0); HEMATOCRIT 39.9 % (41-53); HEMOGLOBIN 12.7 g/dL (13.5-17.5); LYMPHOCYTES # (AUTO) 1.3 K/uL (1.0-4.8); LYMPHOCYTES % (AUTO) 18.9 % (22.0-44.0); MEAN CORPUSCULAR HEMOGLOBIN 26.7 pg (26.0-34.0); MEAN CORPUSCULAR HGB CONC 31.9 G/dL (31.0-37.0); MEAN CORPUSCULAR VOLUME 84 fL (80-100); MONOCYTES # (AUTO) 0.7 K/uL (0.1-1.0); MONOCYTES % (AUTO) 10.9 % (2.0-9.0); NEUTROPHILS % (AUTO) 58.8 % (40.0-70.0); PLATELET COUNT (AUTO) 276 K/uL (150-450); RED BLOOD CELL COUNT(AUTO) 4.76 MIL/uL (4.50-5.90); RED CELL DISTRIBUTION WIDTH 17.3 % (11.5-14.5)
[2019-08-28 07:47] VITALS: BP 92/76
[2019-08-28 07:47] LABS: ANION GAP 5 mmol/L (8-16); CALCIUM, TOTAL 8.8 mg/dL (8.8-10.5); CARBON DIOXIDE 30 mmol/L (22-29); CHLORIDE 105 mmol/L (98-107); CREATININE 0.96 mg/dL (0.60-1.30); GLOMERULAR FILTR. RATE CALC > 60 mL/min (>60); GLUCOSE,RANDOM 97 mg/dL (70-110); POTASSIUM 4.3 mmol/L (3.5-5.1); SODIUM SERUM 140 mmol/L (136-145); UREA NITROGEN, BLOOD 8 mg/dL (7-18)
[2019-08-28] MEDS: RIFAMPIN 300 MG CAPSULE PO SCH (09:56)
[2019-08-28] MEDS: PYRAZINAMIDE 500 MG TABLET PO SCH (09:57)
[2019-08-28] MEDS: ISONIAZID 300 MG TABLET PO SCH (09:57)
[2019-08-28] MEDS: PYRIDOXINE HCL 50 MG TABLET PO SCH (09:57)
[2019-08-28] MEDS: ETHAMBUTOL HCL 400 MG TABLET PO SCH (09:57)
[2019-08-28] MEDS: SERTRALINE HCL 50 MG TABLET PO SCH (09:58)
[2019-08-28] MEDS: LORazepam 1 MG TABLET PO PRN ×2 (09:58→20:25)
[2019-08-28 16:19] VITALS: BP 99/71
[2019-08-28 20:00] VITALS: BP 101/53
[2019-08-28] MEDS: DiphenhydrAMINE HCL 25 MG CAPSULE PO PRN (20:25)
[2019-08-29 04:50] VITALS: BP 104/58
[2019-08-29 08:04] VITALS: BP 102/60
[2019-08-29] MEDS: SERTRALINE HCL 50 MG TABLET PO SCH (09:20)
[2019-08-29] MEDS: PYRIDOXINE HCL 50 MG TABLET PO SCH (09:20)
[2019-08-29] MEDS: ISONIAZID 300 MG TABLET PO SCH (09:21)
[2019-08-29] MEDS: ETHAMBUTOL HCL 400 MG TABLET PO SCH (09:21)
[2019-08-29] MEDS: RIFAMPIN 300 MG CAPSULE PO SCH (09:21)
[2019-08-29] MEDS: PYRAZINAMIDE 500 MG TABLET PO SCH (09:21)
[2019-08-29 15:49] VITALS: BP 102/63
[2019-08-29] MEDS: DiphenhydrAMINE HCL 25 MG CAPSULE PO PRN (22:16)
[2019-08-29] MEDS: LORazepam 1 MG TABLET PO PRN (22:16)
[2019-08-30] VITALS: BP 120/65
[2019-08-30 04:30] VITALS: BP 115/59
[2019-08-30 07:36] VITALS: BP 110/58
[2019-08-30] MEDS: RIFAMPIN 300 MG CAPSULE PO SCH (09:27)
[2019-08-30] MEDS: ETHAMBUTOL HCL 400 MG TABLET PO SCH (09:27)
[2019-08-30] MEDS: PYRIDOXINE HCL 50 MG TABLET PO SCH (09:27)
[2019-08-30] MEDS: ISONIAZID 300 MG TABLET PO SCH (09:27)
[2019-08-30] MEDS: SERTRALINE HCL 50 MG TABLET PO SCH (09:27)
[2019-08-30] MEDS: PYRAZINAMIDE 500 MG TABLET PO SCH (09:28)
[2019-08-30 15:31] VITALS: BP 139/61
[2019-08-30 20:30] VITALS: BP 101/57
[2019-08-30] MEDS: DiphenhydrAMINE HCL 25 MG CAPSULE PO PRN (21:03)
[2019-08-30] MEDS: LORazepam 1 MG TABLET PO PRN (21:03)
[2019-08-31 05:35] VITALS: BP 99/54
[2019-08-31 08:17] VITALS: BP 107/61
[2019-08-31] MEDS: ETHAMBUTOL HCL 400 MG TABLET PO SCH (08:52)
[2019-08-31] MEDS: ISONIAZID 300 MG TABLET PO SCH (08:52)
[2019-08-31] MEDS: RIFAMPIN 300 MG CAPSULE PO SCH (08:53)
[2019-08-31] MEDS: PYRIDOXINE HCL 50 MG TABLET PO SCH (08:53)
[2019-08-31] MEDS: SERTRALINE HCL 50 MG TABLET PO SCH (08:53)
[2019-08-31] MEDS: PYRAZINAMIDE 500 MG TABLET PO SCH (08:53)
[2019-08-31 15:48] VITALS: BP 116/62
[2019-08-31 20:45] VITALS: BP 97/53
[2019-08-31] MEDS: LORazepam 1 MG TABLET PO PRN (20:55)
[2019-08-31] MEDS: DiphenhydrAMINE HCL 25 MG CAPSULE PO PRN (20:55)
[2019-09-01 05:27] VITALS: BP 98/61
[2019-09-01 08:21] VITALS: BP 103/60
[2019-09-01] MEDS: PYRAZINAMIDE 500 MG TABLET PO SCH (08:32)
[2019-09-01] MEDS: RIFAMPIN 300 MG CAPSULE PO SCH (08:32)
[2019-09-01] MEDS: ISONIAZID 300 MG TABLET PO SCH (08:32)
[2019-09-01] MEDS: PYRIDOXINE HCL 50 MG TABLET PO SCH (08:32)
[2019-09-01] MEDS: ETHAMBUTOL HCL 400 MG TABLET PO SCH (08:33)
[2019-09-01] MEDS: SERTRALINE HCL 50 MG TABLET PO SCH (08:33)
[2019-09-01 15:54] VITALS: BP 100/55
[2019-09-01] MEDS: LORazepam 1 MG TABLET PO PRN (17:05)
[2019-09-01 20:10] VITALS: BP 102/60
[2019-09-01] MEDS: DiphenhydrAMINE HCL 25 MG CAPSULE PO PRN (20:42)
[2019-09-02 04:15] VITALS: BP 97/53
[2019-09-02] MEDS: ISONIAZID 300 MG TABLET PO SCH (07:51)
[2019-09-02] MEDS: PYRAZINAMIDE 500 MG TABLET PO SCH (07:51)
[2019-09-02] MEDS: RIFAMPIN 300 MG CAPSULE PO SCH (07:51)
[2019-09-02] MEDS: ETHAMBUTOL HCL 400 MG TABLET PO SCH (07:51)
[2019-09-02] MEDS: PYRIDOXINE HCL 50 MG TABLET PO SCH (07:51)
[2019-09-02] MEDS: SERTRALINE HCL 50 MG TABLET PO SCH (07:51)
[2019-09-02 10:30] VITALS: BP 117/70
[2019-09-02] MEDS: LORazepam 1 MG TABLET PO PRN (16:22)
[2019-09-02 16:27] VITALS: BP 110/64
[2019-09-02] MEDS: DiphenhydrAMINE HCL 25 MG CAPSULE PO PRN (21:12)
[2019-09-02 21:16] VITALS: BP 117/59
[2019-09-03 06:05] VITALS: BP 113/63
[2019-09-03] MEDS: LORazepam 1 MG TABLET PO PRN ×2 (06:07→14:34)
[2019-09-03 08:05] VITALS: BP 106/66
[2019-09-03] MEDS: ETHAMBUTOL HCL 400 MG TABLET PO SCH (08:52)
[2019-09-03] MEDS: PYRAZINAMIDE 500 MG TABLET PO SCH (08:55)
[2019-09-03] MEDS: ISONIAZID 300 MG TABLET PO SCH (08:57)
[2019-09-03] MEDS: RIFAMPIN 300 MG CAPSULE PO SCH (08:57)
[2019-09-03] MEDS: SERTRALINE HCL 50 MG TABLET PO SCH (08:58)
[2019-09-03] MEDS: PYRIDOXINE HCL 50 MG TABLET PO SCH (09:00)
[2019-09-03 16:09] VITALS: BP 123/67
[2019-09-03 20:08] VITALS: BP 106/64
[2019-09-04] MEDS: LORazepam 1 MG TABLET PO PRN ×3 (01:37→20:26)
[2019-09-04 05:31] VITALS: BP 100/59
[2019-09-04 07:13] LABS: BASOPHILS % (AUTO) 1.5 % (0.0-2.0); EOSINOPHILS % (AUTO) 10.1 % (1.0-6.0); HEMATOCRIT 38.7 % (41-53); HEMOGLOBIN 13.2 g/dL (13.5-17.5); LYMPHOCYTES # (AUTO) 1.2 K/uL (1.0-4.8); LYMPHOCYTES % (AUTO) 19.9 % (22.0-44.0); MEAN CORPUSCULAR HEMOGLOBIN 28.4 pg (26.0-34.0); MEAN CORPUSCULAR VOLUME 84 fL (80-100); MONOCYTES # (AUTO) 0.6 K/uL (0.1-1.0); MONOCYTES % (AUTO) 10.7 % (2.0-9.0); NEUTROPHILS # (AUTO) 3.4 K/uL (1.8-7.7); NEUTROPHILS % (AUTO) 57.8 % (40.0-70.0); PLATELET COUNT (AUTO) 264 K/uL (150-450); RED BLOOD CELL COUNT(AUTO) 4.63 MIL/uL (4.50-5.90)
[2019-09-04 07:56] VITALS: BP 103/59
[2019-09-04 08:25] LABS: ALANINE AMINOTRANSFERASE 35 U/L (12-78); ALBUMIN 3.5 g/dL (3.4-5.0); ALKALINE PHOSPHATASE 50 U/L (46-116); ANION GAP 6 mmol/L (8-16); ASPARTATE AMINOTRANSFERASE 17 U/L (15-37); BILIRUBIN,TOTAL 0.1 mg/dL (0.1-1.0); CALCIUM, TOTAL 8.6 mg/dL (8.8-10.5); CARBON DIOXIDE 29 mmol/L (22-29); CHLORIDE 105 mmol/L (98-107); CREATININE 0.91 mg/dL (0.60-1.30); GLOMERULAR FILTR. RATE CALC > 60 mL/min (>60); GLUCOSE,RANDOM 90 mg/dL (70-110); POTASSIUM 4.5 mmol/L (3.5-5.1); SODIUM SERUM 140 mmol/L (136-145); TOTAL PROTEIN, SERUM 7.9 g/dL (6.4-8.2); UREA NITROGEN, BLOOD 8 mg/dL (7-18)
[2019-09-04] MEDS: RIFAMPIN 300 MG CAPSULE PO SCH (09:20)
[2019-09-04] MEDS: SERTRALINE HCL 50 MG TABLET PO SCH (09:20)
[2019-09-04] MEDS: PYRIDOXINE HCL 50 MG TABLET PO SCH (09:20)
[2019-09-04] MEDS: ETHAMBUTOL HCL 400 MG TABLET PO SCH (09:20)
[2019-09-04] MEDS: PYRAZINAMIDE 500 MG TABLET PO SCH (09:20)
[2019-09-04] MEDS: ISONIAZID 300 MG TABLET PO SCH (09:20)
[2019-09-04 15:10] VITALS: BP 102/55
[2019-09-04] MEDS: DiphenhydrAMINE HCL 25 MG CAPSULE PO PRN (20:26)
[2019-09-04 20:37] VITALS: BP 104/62
[2019-09-05 04:30] VITALS: BP 101/73
[2019-09-05 08:00] VITALS: BP 110/77
[2019-09-05] MEDS: PYRAZINAMIDE 500 MG TABLET PO SCH (08:35)
[2019-09-05] MEDS: ISONIAZID 300 MG TABLET PO SCH (08:35)
[2019-09-05] MEDS: PYRIDOXINE HCL 50 MG TABLET PO SCH (08:35)
[2019-09-05] MEDS: ETHAMBUTOL HCL 400 MG TABLET PO SCH (08:35)
[2019-09-05] MEDS: RIFAMPIN 300 MG CAPSULE PO SCH (08:35)
[2019-09-05] MEDS: LORazepam 1 MG TABLET PO PRN ×2 (08:35→19:55)
[2019-09-05] MEDS: SERTRALINE HCL 50 MG TABLET PO SCH (08:35)
[2019-09-05 16:00] VITALS: BP 111/72
[2019-09-05] MEDS: DiphenhydrAMINE HCL 25 MG CAPSULE PO PRN (19:55)
[2019-09-05 20:00] VITALS: BP 139/85
[2019-09-06 04:00] VITALS: BP 106/65
[2019-09-06 08:17] VITALS: BP 95/63
[2019-09-06] MEDS: PYRAZINAMIDE 500 MG TABLET PO SCH (08:34)
[2019-09-06] MEDS: RIFAMPIN 300 MG CAPSULE PO SCH (08:34)
[2019-09-06] MEDS: PYRIDOXINE HCL 50 MG TABLET PO SCH (08:34)
[2019-09-06] MEDS: ETHAMBUTOL HCL 400 MG TABLET PO SCH (08:34)
[2019-09-06] MEDS: ISONIAZID 300 MG TABLET PO SCH (08:34)
[2019-09-06] MEDS: SERTRALINE HCL 50 MG TABLET PO SCH (08:35)
[2019-09-06] MEDS: LORazepam 1 MG TABLET PO PRN ×2 (09:10→17:39)
[2019-09-06 16:00] VITALS: BP 127/53
[2019-09-06] MEDS: DiphenhydrAMINE HCL 25 MG CAPSULE PO PRN (21:01)
[2019-09-06 21:23] VITALS: BP 113/65
[2019-09-07 05:01] VITALS: BP 93/70
[2019-09-07 08:06] VITALS: BP 105/63
[2019-09-07] MEDS: PYRAZINAMIDE 500 MG TABLET PO SCH (08:19)
[2019-09-07] MEDS: PYRIDOXINE HCL 50 MG TABLET PO SCH (08:19)
[2019-09-07] MEDS: SERTRALINE HCL 50 MG TABLET PO SCH (08:19)
[2019-09-07] MEDS: RIFAMPIN 300 MG CAPSULE PO SCH (08:20)
[2019-09-07] MEDS: ISONIAZID 300 MG TABLET PO SCH (08:20)
[2019-09-07] MEDS: ETHAMBUTOL HCL 400 MG TABLET PO SCH (08:20)
[2019-09-07] MEDS: LORazepam 1 MG TABLET PO PRN ×2 (10:05→21:31)
[2019-09-07 15:30] VITALS: BP 114/54
[2019-09-07 21:30] VITALS: BP 101/62
[2019-09-07] MEDS: DiphenhydrAMINE HCL 25 MG CAPSULE PO PRN (21:31)
[2019-09-08 04:27] VITALS: BP 99/64
[2019-09-08 08:10] VITALS: BP 102/59
[2019-09-08] MEDS: PYRAZINAMIDE 500 MG TABLET PO SCH (08:23)
[2019-09-08] MEDS: SERTRALINE HCL 50 MG TABLET PO SCH (08:23)
[2019-09-08] MEDS: PYRIDOXINE HCL 50 MG TABLET PO SCH (08:24)
[2019-09-08] MEDS: ETHAMBUTOL HCL 400 MG TABLET PO SCH (08:24)
[2019-09-08] MEDS: ISONIAZID 300 MG TABLET PO SCH (08:24)
[2019-09-08] MEDS: RIFAMPIN 300 MG CAPSULE PO SCH (08:24)
[2019-09-08] MEDS: LORazepam 1 MG TABLET PO PRN ×2 (08:24→21:01)
[2019-09-08 15:48] VITALS: BP 104/60
[2019-09-08 20:06] VITALS: BP 113/52
[2019-09-08] MEDS: DiphenhydrAMINE HCL 25 MG CAPSULE PO PRN (21:01)
[2019-09-09 04:40] VITALS: BP 101/48
[2019-09-09 08:03] VITALS: BP 100/66
[2019-09-09] MEDS: ETHAMBUTOL HCL 400 MG TABLET PO SCH (08:50)
[2019-09-09] MEDS: ISONIAZID 300 MG TABLET PO SCH (08:50)
[2019-09-09] MEDS: PYRAZINAMIDE 500 MG TABLET PO SCH (08:50)
[2019-09-09] MEDS: RIFAMPIN 300 MG CAPSULE PO SCH (08:50)
[2019-09-09] MEDS: LORazepam 1 MG TABLET PO PRN ×2 (08:50→20:33)
[2019-09-09] MEDS: PYRIDOXINE HCL 50 MG TABLET PO SCH (08:50)
[2019-09-09] MEDS: SERTRALINE HCL 50 MG TABLET PO SCH (08:52)
[2019-09-09 16:00] VITALS: BP 106/54
[2019-09-09 20:30] VITALS: BP 108/69
[2019-09-09] MEDS: ACETAMINOPHEN 325 MG TABLET PO PRN (20:33)
[2019-09-09] MEDS: DiphenhydrAMINE HCL 25 MG CAPSULE PO PRN (20:33)
[2019-09-10 05:00] VITALS: BP 102/84
[2019-09-10 07:35] VITALS: BP 101/71
[2019-09-10] MEDS: ETHAMBUTOL HCL 400 MG TABLET PO SCH (08:17)
[2019-09-10] MEDS: RIFAMPIN 300 MG CAPSULE PO SCH (08:17)
[2019-09-10] MEDS: PYRIDOXINE HCL 50 MG TABLET PO SCH (08:17)
[2019-09-10] MEDS: ISONIAZID 300 MG TABLET PO SCH (08:17)
[2019-09-10] MEDS: PYRAZINAMIDE 500 MG TABLET PO SCH (08:17)
[2019-09-10] MEDS: IBUPROFEN 400 MG TABLET PO PRN ×2 (08:17→17:52)
[2019-09-10] MEDS: SERTRALINE HCL 50 MG TABLET PO SCH (08:17)
[2019-09-10] MEDS: LORazepam 1 MG TABLET PO PRN ×2 (08:17→17:54)
[2019-09-10 15:36] VITALS: BP 106/50
[2019-09-10 19:58] VITALS: BP 100/43
[2019-09-10] MEDS: DiphenhydrAMINE HCL 25 MG CAPSULE PO PRN (22:33)
[2019-09-11 05:01] VITALS: BP 96/55
[2019-09-11 08:10] VITALS: BP 92/58
[2019-09-11] MEDS: RIFAMPIN 300 MG CAPSULE PO SCH (09:24)
[2019-09-11] MEDS: ETHAMBUTOL HCL 400 MG TABLET PO SCH (09:24)
[2019-09-11] MEDS: PYRAZINAMIDE 500 MG TABLET PO SCH (09:24)
[2019-09-11] MEDS: PYRIDOXINE HCL 50 MG TABLET PO SCH (09:25)
[2019-09-11] MEDS: ISONIAZID 300 MG TABLET PO SCH (09:25)
[2019-09-11] MEDS: SERTRALINE HCL 50 MG TABLET PO SCH (09:25)
[2019-09-11] MEDS: LORazepam 1 MG TABLET PO PRN ×2 (09:28→18:41)
[2019-09-11 15:44] VITALS: BP 92/55
[2019-09-11 20:38] VITALS: BP 93/53
[2019-09-11] MEDS: DiphenhydrAMINE HCL 25 MG CAPSULE PO PRN (21:02)
[2019-09-12 06:00] VITALS: BP 100/46
[2019-09-12 07:46] VITALS: BP 96/51
[2019-09-12 08:01] LABS: BASOPHILS % (AUTO) 1.3 % (0.0-2.0); EOSINOPHILS % (AUTO) 8.6 % (1.0-6.0); HEMATOCRIT 40.9 % (41-53); HEMOGLOBIN 13.4 g/dL (13.5-17.5); LYMPHOCYTES % (AUTO) 17.3 % (22.0-44.0); MEAN CORPUSCULAR HEMOGLOBIN 27.4 pg (26.0-34.0); MEAN CORPUSCULAR HGB CONC 32.7 G/dL (31.0-37.0); MEAN CORPUSCULAR VOLUME 84 fL (80-100); MONOCYTES # (AUTO) 0.6 K/uL (0.1-1.0); MONOCYTES % (AUTO) 10.2 % (2.0-9.0); NEUTROPHILS # (AUTO) 3.5 K/uL (1.8-7.7); NEUTROPHILS % (AUTO) 62.6 % (40.0-70.0); PLATELET COUNT (AUTO) 253 K/uL (150-450); RED BLOOD CELL COUNT(AUTO) 4.88 MIL/uL (4.50-5.90); RED CELL DISTRIBUTION WIDTH 17.4 % (11.5-14.5)
[2019-09-12 08:20] LABS: ALANINE AMINOTRANSFERASE 30 U/L (12-78); ALBUMIN 3.6 g/dL (3.4-5.0); ALKALINE PHOSPHATASE 51 U/L (46-116); ANION GAP 4 mmol/L (8-16); ASPARTATE AMINOTRANSFERASE 18 U/L (15-37); BILIRUBIN,TOTAL 0.1 mg/dL (0.1-1.0); CARBON DIOXIDE 31 mmol/L (22-29); CHLORIDE 105 mmol/L (98-107); CREATININE 0.94 mg/dL (0.60-1.30); GLOMERULAR FILTR. RATE CALC > 60 mL/min (>60); GLUCOSE,RANDOM 89 mg/dL (70-110); POTASSIUM 4.5 mmol/L (3.5-5.1); SODIUM SERUM 140 mmol/L (136-145); TOTAL PROTEIN, SERUM 7.9 g/dL (6.4-8.2); UREA NITROGEN, BLOOD 8 mg/dL (7-18)
[2019-09-12] MEDS: RIFAMPIN 300 MG CAPSULE PO SCH (08:39)
[2019-09-12] MEDS: ETHAMBUTOL HCL 400 MG TABLET PO SCH (08:42)
[2019-09-12] MEDS: PYRAZINAMIDE 500 MG TABLET PO SCH (08:43)
[2019-09-12] MEDS: ISONIAZID 300 MG TABLET PO SCH (08:44)
[2019-09-12] MEDS: SERTRALINE HCL 50 MG TABLET PO SCH (08:44)
[2019-09-12] MEDS: PYRIDOXINE HCL 50 MG TABLET PO SCH (08:44)
[2019-09-12] MEDS: LORazepam 1 MG TABLET PO PRN ×2 (08:45→16:50)
[2019-09-12 15:27] VITALS: BP_SYST 105; BP_SYST 74; BP_DIAS 60; BP_DIAS 64
[2019-09-12] MEDS: DiphenhydrAMINE HCL 25 MG CAPSULE PO PRN (20:20)
[2019-09-12 20:24] VITALS: BP 99/57
[2019-09-13] MEDS: LORazepam 1 MG TABLET PO PRN ×3 (01:49→17:52)
[2019-09-13 05:10] VITALS: BP 90/54
[2019-09-13] MEDS: PYRAZINAMIDE 500 MG TABLET PO SCH (08:50)
[2019-09-13] MEDS: SERTRALINE HCL 50 MG TABLET PO SCH (08:50)
[2019-09-13] MEDS: ISONIAZID 300 MG TABLET PO SCH (08:50)
[2019-09-13] MEDS: RIFAMPIN 300 MG CAPSULE PO SCH (08:50)
[2019-09-13] MEDS: PYRIDOXINE HCL 50 MG TABLET PO SCH (08:51)
[2019-09-13] MEDS: ETHAMBUTOL HCL 400 MG TABLET PO SCH (08:52)
[2019-09-13] MEDS: DiphenhydrAMINE HCL 25 MG CAPSULE PO PRN (22:20)
[2019-09-13 22:29] VITALS: BP 97/86
[2019-09-14] MEDS: LORazepam 1 MG TABLET PO PRN ×2 (04:25→20:51)
[2019-09-14 04:30] VITALS: BP 94/57
[2019-09-14 08:23] VITALS: BP 104/54
[2019-09-14] MEDS: PYRIDOXINE HCL 50 MG TABLET PO SCH (10:27)
[2019-09-14] MEDS: PYRAZINAMIDE 500 MG TABLET PO SCH (10:27)
[2019-09-14] MEDS: ETHAMBUTOL HCL 400 MG TABLET PO SCH (10:27)
[2019-09-14] MEDS: ISONIAZID 300 MG TABLET PO SCH (10:27)
[2019-09-14] MEDS: SERTRALINE HCL 50 MG TABLET PO SCH (10:27)
[2019-09-14] MEDS: RIFAMPIN 300 MG CAPSULE PO SCH (10:27)
[2019-09-14 15:30] VITALS: BP 103/63
[2019-09-14] MEDS: DiphenhydrAMINE HCL 25 MG CAPSULE PO PRN (20:51)
[2019-09-14 20:56] VITALS: BP 103/64
[2019-09-15 07:53] VITALS: BP 101/60
[2019-09-15] MEDS: RIFAMPIN 300 MG CAPSULE PO SCH (08:51)
[2019-09-15] MEDS: SERTRALINE HCL 50 MG TABLET PO SCH (08:52)
[2019-09-15] MEDS: ETHAMBUTOL HCL 400 MG TABLET PO SCH (08:52)
[2019-09-15] MEDS: LORazepam 1 MG TABLET PO PRN ×2 (08:52→21:41)
[2019-09-15] MEDS: ISONIAZID 300 MG TABLET PO SCH (08:52)
[2019-09-15] MEDS: PYRAZINAMIDE 500 MG TABLET PO SCH (08:52)
[2019-09-15] MEDS: PYRIDOXINE HCL 50 MG TABLET PO SCH (08:52)
[2019-09-15 15:57] VITALS: BP 133/62
[2019-09-15] MEDS: DiphenhydrAMINE HCL 25 MG CAPSULE PO PRN (21:41)
[2019-09-15 21:47] VITALS: BP 124/61
[2019-09-16 08:00] VITALS: BP 102/62
[2019-09-16] MEDS: PYRAZINAMIDE 500 MG TABLET PO SCH (08:53)
[2019-09-16] MEDS: SERTRALINE HCL 50 MG TABLET PO SCH (08:54)
[2019-09-16] MEDS: ISONIAZID 300 MG TABLET PO SCH (08:54)
[2019-09-16] MEDS: ETHAMBUTOL HCL 400 MG TABLET PO SCH (08:54)
[2019-09-16] MEDS: RIFAMPIN 300 MG CAPSULE PO SCH (08:54)
[2019-09-16] MEDS: PYRIDOXINE HCL 50 MG TABLET PO SCH (08:54)
[2019-09-16 17:59] VITALS: BP 123/71
[2019-09-16] MEDS: LORazepam 1 MG TABLET PO PRN (21:30)
[2019-09-16] MEDS: DiphenhydrAMINE HCL 25 MG CAPSULE PO PRN (21:30)
[2019-09-16 21:37] VITALS: BP 91/60
[2019-09-17 05:26] VITALS: BP 96/53
[2019-09-17 08:00] VITALS: BP 112/72
[2019-09-17] MEDS: SERTRALINE HCL 50 MG TABLET PO SCH (08:09)
[2019-09-17] MEDS: ISONIAZID 300 MG TABLET PO SCH (08:09)
[2019-09-17] MEDS: PYRAZINAMIDE 500 MG TABLET PO SCH (08:09)
[2019-09-17] MEDS: PYRIDOXINE HCL 50 MG TABLET PO SCH (08:09)
[2019-09-17] MEDS: ETHAMBUTOL HCL 400 MG TABLET PO SCH (08:09)
[2019-09-17] MEDS: RIFAMPIN 300 MG CAPSULE PO SCH (08:09)
[2019-09-17 15:50] VITALS: BP 104/71
[2019-09-17 20:50] VITALS: BP 114/69
[2019-09-17 21:02] LABS: BASOPHILS % (AUTO) 1.5 % (0.0-2.0); EOSINOPHILS % (AUTO) 11.9 % (1.0-6.0); HEMATOCRIT 39.6 % (41-53); LYMPHOCYTES # (AUTO) 1.3 K/uL (1.0-4.8); MEAN CORPUSCULAR HEMOGLOBIN 27.7 pg (26.0-34.0); MEAN CORPUSCULAR HGB CONC 32.9 G/dL (31.0-37.0); MEAN CORPUSCULAR VOLUME 84 fL (80-100); MONOCYTES # (AUTO) 0.8 K/uL (0.1-1.0); MONOCYTES % (AUTO) 13.3 % (2.0-9.0); NEUTROPHILS # (AUTO) 2.9 K/uL (1.8-7.7); NEUTROPHILS % (AUTO) 50.3 % (40.0-70.0); PLATELET COUNT (AUTO) 255 K/uL (150-450); RED BLOOD CELL COUNT(AUTO) 4.72 MIL/uL (4.50-5.90); RED CELL DISTRIBUTION WIDTH 16.9 % (11.5-14.5)
[2019-09-17] MEDS: LORazepam 1 MG TABLET PO PRN (21:04)
[2019-09-17] MEDS: DiphenhydrAMINE HCL 25 MG CAPSULE PO PRN (21:04)
[2019-09-17 21:21] LABS: ANION GAP 9 mmol/L (8-16); CALCIUM, TOTAL 8.7 mg/dL (8.8-10.5); CARBON DIOXIDE 29 mmol/L (22-29); CHLORIDE 102 mmol/L (98-107); CREATININE 0.93 mg/dL (0.60-1.30); GLOMERULAR FILTR. RATE CALC > 60 mL/min (>60); GLUCOSE,RANDOM 104 mg/dL (70-110); POTASSIUM 4.5 mmol/L (3.5-5.1); SODIUM SERUM 140 mmol/L (136-145); UREA NITROGEN, BLOOD 12 mg/dL (7-18)
[2019-09-17 21:26] LABS: ALANINE AMINOTRANSFERASE 28 U/L (12-78); ALBUMIN 3.7 g/dL (3.4-5.0); ALKALINE PHOSPHATASE 57 U/L (46-116); ASPARTATE AMINOTRANSFERASE 21 U/L (15-37); BILIRUBIN,TOTAL 0.2 mg/dL (0.1-1.0); TOTAL PROTEIN, SERUM 7.9 g/dL (6.4-8.2)
[2019-09-18 05:15] VITALS: BP 119/56
[2019-09-18] MEDS: PYRIDOXINE HCL 50 MG TABLET PO SCH (07:59)
[2019-09-18] MEDS: RIFAMPIN 300 MG CAPSULE PO SCH (07:59)
[2019-09-18] MEDS: SERTRALINE HCL 50 MG TABLET PO SCH (08:00)
[2019-09-18] MEDS: ETHAMBUTOL HCL 400 MG TABLET PO SCH (08:00)
[2019-09-18] MEDS: PYRAZINAMIDE 500 MG TABLET PO SCH (08:00)
[2019-09-18] MEDS: ISONIAZID 300 MG TABLET PO SCH (08:00)
[2019-09-18 08:03] VITALS: BP 117/54
== END 2019-09-18 08:45 | DRG 178 ==
LOC: EMS 16:41 → 4E 20:00 → 6S 08-15 14:43
PROVIDERS: ADMIT Internal Medicine; ATTEND Internal Medicine
DX: A15.0 Tuberculosis of lung (principal); E44.1 Mild protein-calorie malnutrition; R45.851 Suicidal ideations; F33.2 Major depressive disorder, recurrent severe without psychotic features; D64.9 Anemia, unspecified; F17.210 Nicotine dependence, cigarettes, uncomplicated; B96.89 Other specified bacterial agents as the cause of diseases classified elsewhere; F12.90 Cannabis use, unspecified, uncomplicated; F15.90 Other stimulant use, unspecified, uncomplicated; R61 Generalized hyperhidrosis; R91.8 Other nonspecific abnormal finding of lung field; Z88.0 Allergy status to penicillin; Z68.23 Body mass index [BMI] 23.0-23.9, adult; Z79.899 Other long term (current) drug therapy; Z78.9 Other specified health status
CPT/HCPCS: 86480; 87015; 87081; 87149; 87188; 87206; 87389; 87556; 87798; 94640; G0378